=== PATIENT | male | born 1965 | race Caucasian/White ===

== ENCOUNTER 2017-03-19 13:54 | Inpatient (IN) ==
[2017-03-19] MEDS ORDERED: SODIUM CHLORIDE 0.9% 1,000 ML IV SCH (14:30)
[2017-03-19] MEDS ORDERED: MORPHINE 2 MG/1 ML SYRINGE ONE (17:44)
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
[2017-03-19] MEDS: MORPHINE 2 MG/1 ML SYRINGE IV PRN ×2 (17:55→22:14)
[2017-03-19] MEDS ORDERED: SODIUM CHLORIDE 0.9% 250 ML IV PRN (18:10)
[2017-03-19] MEDS: FOLIC ACID 1 MG IV SCH (18:39)
[2017-03-19] MEDS: [UNRECOGNIZED DRUG - OTHER] IV SCH (18:39)
[2017-03-19] MEDS: PANTOPRAZOLE INJ 200 MG in SODIUM CHLORIDE 0.9% 250 ML IV SCH (18:39)
[2017-03-19] MEDS: MULTIVITA IV SCH (18:39)
[2017-03-19] MEDS: THIAMINE IV SCH (18:39)
[2017-03-19 18:44] LABS: Immature Granulocytes % 0.6 %; Immature Granulocytes Absolute 0.05 #; Lymphocytes # 1.1 10*3/uL (1.4-4.0); Lymphocytes % 11.8 % (21.2-54.2); Mean Corpuscular HGB Conc 28.6 GM/DL (32-36); Mean Corpuscular Hemoglobin 20 PG (27-34); Mean Corpuscular Volume 70.3 FL (87-102); Monocytes # 0.6 10*3/uL (0.11-0.8); Monocytes % 6.1 % (1.7-12.7); Neutrophils # 7.4 10*3/uL (1.4-7.4); Neutrophils % 81.5 % (38.7-73.9); Platelet Count 67 T/CUMM (130-400); Red Blood Count 2.39 MC/CUMM (3.8-5.5); Red Cell Distribution Width 22.5 % (9.3-17.3); White Blood Count 9.1 T/CUMM (4-12)
[2017-03-19 18:52] LABS: Albumin 2.4 G/DL (3.4-5.0); Bilirubin,Total 0.9 MG/DL (0.2-1.0); Calcium 7.5 MG/DL (8.5-10.1); Magnesium 1.8 MG/DL (1.8-2.4); Osmolality,Calculated 281.3 MOS/KG (273-304); Potassium 4.1 MMOL/L (3.5-5.1); Total Protein 6.2 G/DL (6.4-8.3)
[2017-03-19 18:53] LABS: Hematocrit 16.8 VOL% (42.0-52.0); Hemoglobin 4.8 GM/DL (14.0-18.0)
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
[2017-03-19 19:01] LABS: Platelet Estimate Decreased
--- NOTE | 2017-03-19 19:05 | XRay Report ---
Portable chest Date: 03/19/2017 Clinical history: Hypertension, nicotine abuse, hematemesis, alcohol abuse, anemia Comparison: None Technique: Portable AP sitting chest Findings: The heart is normal in size. Calcified granulomata/nodes. Unremarkable mediastinum with degenerative changes. Impression: Old healed granulomatous disease. No acute cardiopulmonary pathology identified. PROCEDURE INTERPRETED AT [facility] DEPARTMENT OF RADIOLOGY Final Report Signed by: Dr. Ellen Silva
[2017-03-19 19:19] LABS: % Iron Saturation 6.3 % (18-50); Ferritin 11.3 ng/ml (26-388)
[2017-03-19 19:49] LABS: INR 1.3; PT Patient Result 14.5 SECS
[2017-03-19] MEDS: ONDANSETRON 4 MG/2 ML VIAL IV PRN (20:12)
[2017-03-19] MEDS: LORazepam 2 MG/1 ML VIAL IV PRN (20:46)
[2017-03-20] MEDS: LORazepam 2 MG/1 ML VIAL IV PRN ×5 (01:53→22:53)
[2017-03-20] MEDS: MORPHINE 2 MG/1 ML SYRINGE IV PRN ×5 (02:12→22:53)
[2017-03-20] MEDS: [UNRECOGNIZED DRUG - OTHER] IV SCH ×2 (04:50→16:40)
[2017-03-20] MEDS: FOLIC ACID 1 MG IV SCH ×2 (04:50→16:40)
[2017-03-20] MEDS: MULTIVITA IV SCH ×2 (04:50→16:40)
[2017-03-20] MEDS: THIAMINE IV SCH ×2 (04:50→16:40)
[2017-03-20 05:47] LABS: Immature Granulocytes % 0.5 %; Immature Granulocytes Absolute 0.06 #; Lymphocytes # 1.8 10*3/uL (1.4-4.0); Lymphocytes % 15.5 % (21.2-54.2); Mean Corpuscular HGB Conc 28.6 GM/DL (32-36); Mean Corpuscular Hemoglobin 20 PG (27-34); Mean Corpuscular Volume 70.3 FL (87-102); Monocytes # 0.7 10*3/uL (0.11-0.8); Monocytes % 6.2 % (1.7-12.7); NRBC # 0.02 10*3/uL; Neutrophils # 8.8 10*3/uL (1.4-7.4); Neutrophils % 77.8 % (38.7-73.9); Platelet Count 74 T/CUMM (130-400); Red Blood Count 2.29 MC/CUMM (3.8-5.5); Red Cell Distribution Width 22.5 % (9.3-17.3); White Blood Count 11.3 T/CUMM (4-12)
[2017-03-20 05:57] LABS: Hematocrit 16.1 VOL% (42.0-52.0); Hemoglobin 4.6 GM/DL (14.0-18.0); INR 1.3; PT Patient Result 13.8 SECS; Partial Thromboplastin Time 27.3 SECS (0-40)
[2017-03-20 06:07] LABS: Elliptocytes Few; Eosinophils 1 % (0-10); Hypochromasia 1+; Lymphocytes 13 % (20-55); Platelet Estimate Decreased; Segmented Neutrophils 83 % (50-85); Total Cells Counted 100
--- NOTE | 2017-03-20 08:01 | EKG Report ---
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
--- NOTE | 2017-03-20 10:35 | Hospitalist Progress Note ---
Assessment and Plan - Time spent with patient Time spent with patient: Greater than 30 minutes (1) Acute blood loss anemia Status: Acute Assessment and plan: Attempting to find blood match. Current Visit: Yes (2) Hematemesis Status: Acute Assessment and plan: Gi on board, hopefully scope today. Current Visit: Yes (3) Alcohol abuse Status: Acute Assessment and plan: Patient counselled. Current Visit: Yes Hospitalist: Subjective Interval history: No complaints, no overnight events. Exam - Constitutional Vitals: Period Temp Pulse Resp BP Sys/Avila Pulse Ox Last 24 Hr 97.7 F-100.1 F 93-109 18-20 98-160/57-97 96-99 General appearance: no acute distress - Head Head exam: Present: normocephalic, atraumatic - Eye Eye exam: Present: EOMI Pupils: Present: IDA - ENT ENT exam: Present: normal exam - Neck Neck exam: Present: normal inspection - Respiratory Respiratory exam: Present: clear to auscultation bilaterally. Absent: rhonchi, wheezes - Cardiovascular Cardiovascular exam: Present: regular rate and rhythm. Absent: gallop, rubs, systolic murmur - GI/Abdominal GI/Abdominal exam: Present: normal bowel sounds, soft. Absent: distended, firm , guarding, tenderness, rebound - Extremities Exam Extremities exam: Present: normal inspection. Absent: calf tenderness, edema Results - Labs CBC & BMP: 03/20/17 04:55 03/19/17 17:21 Lab Results: I have reviewed the past 24 hour labs Quality Measures - VTE Contraindication No Overlap Therapy: Active Bleeding
[2017-03-20] MEDS ORDERED: LIDOCAINE 2% 5 ML VIAL ONE (12:03)
[2017-03-20] MEDS ORDERED: PROPOFOL 200 MG/20 ML VIAL IV ONE (12:03)
--- NOTE | 2017-03-20 12:06 | History and Physical Update ---
History and Physical Update - Physical Exam Mental Status: alert and oriented Heart: regular rate and rhythm Lung: clear to auscultation Abdomen: within normal limits Vitals: within normal limits
--- NOTE | 2017-03-20 12:16 | Operative Note ---
Date of procedure: 03/20/17 Pre-op diagnosis: Hematemesis Procedure: -year-old alcoholic male with hematemesis has had multiple endoscopies he reports done at [facility] in [place] with no definitive source identified now for repeat EGD. So far his hospital course have been complicated by the fact that he has been unable to be transfused due to inability to find compatible blood due to antibodies. Informed consent was obtained the patient He was sedated with MAC anesthesia per anesthesia protocol. Patient placed left lateral decubitus position the Olympus flexible video upper endoscope was inserted lower cavity under direct vision the esophagus intubated findings: Esophagus-1+ esophageal varices are seen in the distal esophagus there is no stigmata of recent bleed with no mucus below pleural or ott red spots. Stomach-normal insufflation. Changes of portal hypertensive gastropathy were visualized. No blood was present. No ulcer seen to direct retroflexed views of the body fundus cardia the stomach. Pylorus-normal Duodenum-normal the bulb duodenum to the third portion of duodenum. The procedure terminated placed our procedure well his discharge recovery in good condition Postop diagnosis: 1. Esophageal varices-no evidence to suggest recent bleeding. Hematocrit is too low to risk creating any bleeding with no evidence of ongoing bleeding. Possibilities varices get better if his blood count was normalized would certainly have to be entertained. Whether or not he has had prior banding done informed general we are unaware. 2. Portal hypertensive gastropathy 3. Transfuse blood when available and monitor for signs symptoms of ongoing bleeding. Prognosis is poor both from his multiple antibodies complicating ability to give him blood and his unwillingness to cease alcohol consumption and his underlying alcoholic liver disease. Anesthesia: [facility] Surgeon / Physician: Kenji Dee Estimated blood loss: none Specimens: none sent Condition: stable Disposition: post procedure unit Results - Labs CBC & BMP: 03/20/17 04:55 03/19/17 17:21 Discharge Plan - Discharge Medications No Action chlordiazePOXIDE [Librium] 25 mg PO DAILY Pantoprazole Sodium 40 mg PO DAILY cloNIDine HCl [Clonidine HCl] 0.1 mg PO DAILY PRN PRN Reason: Anxiety - Follow Up or Referral - Forms/Instructions
--- NOTE | 2017-03-20 13:00 | Anesthesia Post-Op ---
Anesthesia Post OP - Post Ansesthetic Evaluation Patient seen in post op: Yes Resp: within normal limits CV: within normal limits Mental: within normal limits Temp: within normal limits [id number]: within normal limits Nausea and Vomiting: within normal limits Pain: within normal limits
[2017-03-20] MEDS: PANTOPRAZOLE INJ 200 MG in SODIUM CHLORIDE 0.9% 250 ML IV SCH (20:01)
[2017-03-20] MEDS: ONDANSETRON 4 MG/2 ML VIAL IV PRN (21:15)
[2017-03-21] MEDS: LORazepam 2 MG/1 ML VIAL IV PRN ×3 (02:58→11:55)
[2017-03-21] MEDS: MORPHINE 2 MG/1 ML SYRINGE IV PRN ×3 (02:58→11:59)
[2017-03-21 04:23] LABS: Hematocrit 14.2 VOL% (42.0-52.0); Hemoglobin 4.1 GM/DL (14.0-18.0)
[2017-03-21 04:26] LABS: INR 1.3; PT Patient Result 13.8 SECS
[2017-03-21] MEDS: MULTIVITA IV SCH ×4 (07:20→23:53)
[2017-03-21] MEDS: [UNRECOGNIZED DRUG - OTHER] IV SCH ×4 (07:20→23:53)
[2017-03-21] MEDS: FOLIC ACID 1 MG IV SCH ×4 (07:20→23:53)
[2017-03-21] MEDS: THIAMINE IV SCH ×4 (07:20→23:53)
[2017-03-21 09:15] LABS: Basophils % 0.1 % (0.0-0.8); Immature Granulocytes % 0.7 %; Immature Granulocytes Absolute 0.07 #; Lymphocytes # 2.4 10*3/uL (1.4-4.0); Lymphocytes % 23.5 % (21.2-54.2); Mean Corpuscular HGB Conc 27.6 GM/DL (32-36); Mean Corpuscular Hemoglobin 20 PG (27-34); Mean Corpuscular Volume 72.8 FL (87-102); Monocytes # 0.7 10*3/uL (0.11-0.8); Monocytes % 6.6 % (1.7-12.7); Neutrophils % 69.1 % (38.7-73.9); Platelet Count 86 T/CUMM (130-400); Red Blood Count 2.24 MC/CUMM (3.8-5.5); Red Cell Distribution Width 23.2 % (9.3-17.3); White Blood Count 10.2 T/CUMM (4-12)
[2017-03-21 09:20] LABS: Hematocrit 16.3 VOL% (42.0-52.0); Hemoglobin 4.5 GM/DL (14.0-18.0)
[2017-03-21 09:42] LABS: Calcium 7.5 MG/DL (8.5-10.1); Osmolality,Calculated 280.3 MOS/KG (273-304); Potassium 3.5 MMOL/L (3.5-5.1)
[2017-03-21 09:49] LABS: Hypochromasia 1+; Microcytosis 1+; Polychromasia Slight; Target Cells Few
[2017-03-21 09:50] LABS: Ovalocytes Slight; Platelet Estimate Decreased
--- NOTE | 2017-03-21 10:49 | Gastrointestinal Progress Note ---
<Jen Stokes D - Last Filed: 03/21/17 10:47> Assessment and Plan (1) Hematemesis Status: Acute Assessment and plan: 03/21-Hgb 4.5, awaiting blood transfusion d/t difficulty with type/ crossmatching. Reports small amount of dark and bright red blood in stool today. Denies pain. Continue to monitor at present time. Plan and addendum to follow by Dr Dee. Current Visit: Yes Gastroenterology - PN: Subj Interval history: CC: Hematemesis Patient is seen awake and alert sitting up at the edge of bed. States that he is getting up and down to the bathroom by himself at this time. Patient does complain of some weakness with ambulation. His hemoglobin remains at 4.5 and has not had the blood transfusion as of yet due to difficulties with typing and cross matching. EGD on yesterday showed esophageal varices with no recent bleeding seen as well as portal hypertensive gastropathy. No current alcohol withdrawal seizures or DTs noted at present time. Abdomen soft, nontender. Tolerating clear liquids at present. Patient heavily advised not to get up and down without the assistance of nursing staff due to his low blood counts and risk of orthostatic hypotension related falls. He is noted to be running a low- grade fever this morning at 100.3. He does report a small amount of dark and bright red blood mixed in stool this morning. No reports of pain. ROS: Denies shortness of breath or chest pain Exam (Progress Note) - Constitutional Vitals: Period Temp Pulse Resp BP Sys/Avila Pulse Ox Last 24 Hr 99.4 F-100.9 F 100-126 14-23 93-136/56-78 94-98 General appearance: normal weight, no acute distress - Head Head exam: Present: normal inspection, normocephalic - Eye Eye exam: Present: other (Lids objective unremarkable). Absent: scleral icterus - ENT ENT exam: Present: normal exam, normal oropharynx - Neck Neck exam: Present: normal inspection - Respiratory Respiratory exam: Present: clear to auscultation bilaterally. Absent: rales, rhonchi, wheezes - Cardiovascular Cardiovascular exam: Present: regular rate and rhythm. Absent: diastolic murmur , JVD, systolic murmur - GI/Abdominal GI/Abdominal exam: Present: normal bowel sounds, soft. Absent: ascites, distended, mass, organomegaly, tenderness - Extremities Exam Extremities exam: Present: normal inspection, full ROM - Back Exam Back exam: Present: normal inspection - Neurological Exam Neurological exam: Present: alert, oriented X3 - Psychiatric Psychiatric exam: Present: normal affect, normal mood - Skin Skin exam: Present: normal color, warm, dry Results - Labs CBC & BMP: 03/21/17 09:05 03/21/17 09:05 Lab Results: I have reviewed the past 24 hour labs <Kenji Dee - Last Filed: 03/21/17 18:28> Assessment and Plan (1) Hematemesis Status: Acute Current Visit: Yes (2) Alcohol abuse Status: Acute Current Visit: Yes Exam (Progress Note) - Constitutional Vitals: Period Temp Pulse Resp BP Sys/Avila Pulse Ox Last 24 Hr 99.0 F-100.9 F 97-120 18-22 107-140/68-90 93-98 Results - Labs CBC & BMP: 03/21/17 09:05 03/21/17 09:05
--- NOTE | 2017-03-21 11:26 | XRay Report ---
Exam: XR chest 1V portable Date: 03/21/2017 8:18 AM Indication: Fever Comparison: 03/19/2017 Technical: AP portable Findings: Mild cardiac enlargement. No obvious infiltrate or effusion. A few reticular nodular densities are present. The mediastinum is otherwise intact. Impression: 1. Cardiomegaly without decompensation. PROCEDURE INTERPRETED AT [facility] DEPARTMENT OF RADIOLOGY Final Report Signed by: Dr. Gilberto Maya
[2017-03-21] MEDS ORDERED: LORazepam 2 MG/1 ML VIAL IV SCH (14:00)
--- NOTE | 2017-03-21 14:00 | Hospitalist Progress Note ---
Assessment and Plan - Time spent with patient Time spent with patient: Greater than 30 minutes (1) Fever Status: Acute Assessment and plan: May reflect DTs. Will increase Ativan. Chest x-ray is unremarkable will obtain blood culture and urinalysis. Current Visit: Yes (2) Acute blood loss anemia Status: Acute Assessment and plan: Attempting to find blood match. Current Visit: Yes (3) Hematemesis Status: Acute Assessment and plan: Scope performed and reveals esophageal varices with changes of portal hypertension gastropathy. Current Visit: Yes (4) Alcohol abuse Status: Acute Assessment and plan: I am concerned the fever may represent DTs. We will schedule Ativan and have as needed. Current Visit: Yes Hospitalist: Subjective Interval history: Patient has been having low-grade fevers. Denies any cough or dysuria. Still awaiting blood match for transfusion. Exam - Constitutional Vitals: Period Temp Pulse Resp BP Sys/Avila Pulse Ox Last 24 Hr 99.0 F-100.9 F 97-126 18-22 107-139/64-82 93-98 General appearance: no acute distress - Head Head exam: Present: normocephalic, atraumatic - Eye Eye exam: Present: EOMI Pupils: Present: IDA - ENT ENT exam: Present: normal exam - Neck Neck exam: Present: normal inspection - Respiratory Respiratory exam: Present: clear to auscultation bilaterally, other (Some rales appreciated at the bases.). Absent: rhonchi, wheezes - Cardiovascular Cardiovascular exam: Present: regular rate and rhythm. Absent: gallop, rubs, systolic murmur - GI/Abdominal GI/Abdominal exam: Present: normal bowel sounds, soft. Absent: distended, firm , guarding, tenderness, rebound - Extremities Exam Extremities exam: Present: normal inspection. Absent: calf tenderness, edema Results - Labs CBC & BMP: 03/21/17 09:05 03/21/17 09:05 Lab Results: I have reviewed the past 24 hour labs Quality Measures - VTE Contraindication No Overlap Therapy: Active Bleeding
[2017-03-21] MEDS: LORazepam 2 MG/1 ML VIAL IV SCH ×2 (14:27→21:32)
[2017-03-21] MEDS ORDERED: HALOPERIDOL 5 MG/ML AMP IM ONE (15:23)
[2017-03-21] MEDS: PANTOPRAZOLE INJ 200 MG in SODIUM CHLORIDE 0.9% 250 ML IV SCH ×2 (17:30→23:54)
[2017-03-22 02:18] LABS: Basophils % 0.1 % (0.0-0.8); Hematocrit 20.1 VOL% (42.0-52.0); Immature Granulocytes % 0.5 %; Immature Granulocytes Absolute 0.04 #; Lymphocytes # 1.4 10*3/uL (1.4-4.0); Lymphocytes % 18.2 % (21.2-54.2); Mean Corpuscular HGB Conc 29.9 GM/DL (32-36); Mean Corpuscular Hemoglobin 22 PG (27-34); Mean Corpuscular Volume 73.9 FL (87-102); Monocytes # 0.6 10*3/uL (0.11-0.8); Monocytes % 7.5 % (1.7-12.7); NRBC # 0.02 10*3/uL; Neutrophils # 5.8 10*3/uL (1.4-7.4); Neutrophils % 73.7 % (38.7-73.9); Platelet Count 72 T/CUMM (130-400); Red Blood Count 2.72 MC/CUMM (3.8-5.5); Red Cell Distribution Width 22.3 % (9.3-17.3); White Blood Count 7.8 T/CUMM (4-12)
[2017-03-22 02:25] LABS: Apearance,Urine CLEAR (Clear); Bilirubin,Urine Negative (Negative); Blood, Urine Negative (Negative); Glucose,Urine (UA) Negative (Negative); Hyaline Casts,Urine 1 /LPF (0-3); Ketones,Urine Negative (Negative); Mucus,Urine Occasional /LPF (Occasional); Nitrite,Urine Negative (Negative); Protein,Urine Negative; Urine Color Yellow (Yellow); WBC,Urine 1 /HPF (0-6)
[2017-03-22 02:42] LABS: Calcium 7.4 MG/DL (8.5-10.1); Osmolality,Calculated 273.5 MOS/KG (273-304)
[2017-03-22 02:48] LABS: INR 1.3; PT Patient Result 13.9 SECS
[2017-03-22 03:55] LABS: Hypochromasia 2+; Platelet Estimate Decreased; Polychromasia 1+; Spherocytes 1+
[2017-03-22] MEDS: LORazepam 2 MG/1 ML VIAL IV SCH ×2 (06:07→13:45)
[2017-03-22] MEDS: FOLIC ACID 1 MG IV SCH ×2 (06:08→20:54)
[2017-03-22] MEDS: THIAMINE IV SCH ×2 (06:08→20:54)
[2017-03-22] MEDS: [UNRECOGNIZED DRUG - OTHER] IV SCH ×2 (06:08→20:54)
[2017-03-22] MEDS: MULTIVITA IV SCH ×2 (06:08→20:54)
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
[2017-03-22] MEDS ORDERED: HALOPERIDOL 5 MG/ML AMP IM SCH (10:30)
[2017-03-22] MEDS: HALOPERIDOL 5 MG/ML AMP IM PRN (11:35)
[2017-03-22] MEDS ORDERED: SODIUM CHLORIDE 0.9% 250 ML IV PRN (12:53)
--- NOTE | 2017-03-22 12:55 | Hospitalist Progress Note ---
Assessment and Plan - Time spent with patient Time spent with patient: Greater than 30 minutes (1) Encephalopathy acute Status: Acute Assessment and plan: Unsure if this is infectious vs due to withdrawal from alcohol. Will initiate broad spectrum antibiotics. Current Visit: Yes (2) Fever Status: Acute Assessment and plan: We will initiate broad-spectrum antibiotics. Once patient is more stable we will attempt to perform a spinal tap. Current Visit: Yes (3) Acute blood loss anemia Status: Acute Assessment and plan: Transfuse 2 units, will attempt to transfuse 2 more units. Current Visit: Yes (4) Hematemesis Status: Acute Assessment and plan: Scope performed and reveals esophageal varices with changes of portal hypertension gastropathy. Current Visit: Yes (5) Alcohol abuse Status: Acute Assessment and plan: I am concerned the fever may represent DTs if not an infection. We will schedule Ativan and have as needed. Current Visit: Yes Hospitalist: Subjective Interval history: Patient has been agitated is currently in 4. restraints. He is confused. He continues to have fevers. He endorses a sinus headache and occasional neck pain. He was able to receive 2 units of transfused blood yesterday. Exam - Constitutional Vitals: Period Temp Pulse Resp BP Sys/Avila Pulse Ox Last 24 Hr 98.9 F-100.2 F 96-114 18-22 124-140/68-90 94-97 General appearance: no acute distress - Head Head exam: Present: normocephalic, atraumatic - Eye Eye exam: Present: EOMI Pupils: Present: DIA - ENT ENT exam: Present: normal exam - Neck Neck exam: Present: normal inspection - Respiratory Respiratory exam: Present: clear to auscultation bilaterally. Absent: rhonchi, wheezes - Cardiovascular Cardiovascular exam: Present: regular rate and rhythm. Absent: gallop, rubs, systolic murmur - GI/Abdominal GI/Abdominal exam: Present: normal bowel sounds, soft. Absent: distended, firm , guarding, tenderness, rebound - Extremities Exam Extremities exam: Present: normal inspection. Absent: calf tenderness, edema Results - Labs CBC & BMP: 03/22/17 01:47 03/22/17 01:47 Lab Results: I have reviewed the past 24 hour labs Quality Measures - VTE Contraindication No Overlap Therapy: Active Bleeding
[2017-03-22] MEDS ORDERED: VANCOMYCIN INJ 1,250 MG in SODIUM CHLORIDE 0.9% 250 ML IV SCH (14:00)
[2017-03-22] MEDS: cefTRIAXone 2,000 MG in SODIUM CHLORIDE 0.9% 100 ML IV SCH (14:36)
[2017-03-22] MEDS: VANCOMYCIN INJ 1,250 MG in SODIUM CHLORIDE 0.9% 250 ML IV SCH (18:02)
[2017-03-23] MEDS: LORazepam 2 MG/1 ML VIAL IV SCH ×4 (00:50→22:13)
[2017-03-23] MEDS: [UNRECOGNIZED DRUG - OTHER] IV SCH ×3 (00:54→22:21)
[2017-03-23] MEDS: MULTIVITA IV SCH ×3 (00:54→22:21)
[2017-03-23] MEDS: THIAMINE IV SCH ×3 (00:54→22:21)
[2017-03-23] MEDS: FOLIC ACID 1 MG IV SCH ×3 (00:54→22:21)
[2017-03-23] MEDS: cefTRIAXone 2,000 MG in SODIUM CHLORIDE 0.9% 100 ML IV SCH ×2 (02:06→15:29)
[2017-03-23] MEDS: MORPHINE 2 MG/1 ML SYRINGE IV PRN (02:14)
[2017-03-23] MEDS: HALOPERIDOL 5 MG/ML AMP IM PRN (03:33)
[2017-03-23] MEDS: VANCOMYCIN INJ 1,250 MG in SODIUM CHLORIDE 0.9% 250 ML IV SCH ×2 (05:30→18:03)
[2017-03-23] MEDS: PANTOPRAZOLE 40 MG VIAL IV SCH ×2 (08:27→22:07)
[2017-03-23 08:53] LABS: Basophils % 0.1 % (0.0-0.8); Hematocrit 19.9 VOL% (42.0-52.0); Immature Granulocytes % 0.4 %; Immature Granulocytes Absolute 0.03 #; Lymphocytes # 1.4 10*3/uL (1.4-4.0); Mean Corpuscular HGB Conc 28.6 GM/DL (32-36); Mean Corpuscular Hemoglobin 22 PG (27-34); Mean Corpuscular Volume 76.2 FL (87-102); Monocytes # 0.7 10*3/uL (0.11-0.8); Monocytes % 9.7 % (1.7-12.7); NRBC # 0.04 10*3/uL; Neutrophils # 5.1 10*3/uL (1.4-7.4); Neutrophils % 70.8 % (38.7-73.9); Platelet Count 79 T/CUMM (130-400); Red Blood Count 2.61 MC/CUMM (3.8-5.5); Red Cell Distribution Width 22.5 % (9.3-17.3); White Blood Count 7.2 T/CUMM (4-12)
[2017-03-23 09:03] LABS: Hemoglobin 5.7 GM/DL (14.0-18.0)
[2017-03-23 09:12] LABS: Hypochromasia 1+
[2017-03-23 09:13] LABS: Anisocytosis 1+; Microcytosis 1+; Platelet Estimate Decreased; Target Cells Slight
[2017-03-23 09:22] LABS: Calcium 7.2 MG/DL (8.5-10.1); Osmolality,Calculated 282.8 MOS/KG (273-304)
--- NOTE | 2017-03-23 11:31 | Hospitalist Progress Note ---
Assessment and Plan - Time spent with patient Time spent with patient: Greater than 30 minutes (1) Encephalopathy acute Status: Acute Assessment and plan: Still the patient is confused and agitated. He still requires restraints for his own protection. I believe this is most likely due to DTs. Current Visit: Yes (2) Fever Status: Acute Assessment and plan: Improved, prior to even starting antibiotics. No spinal tap warranted and will consider stopping antibiotics. Current Visit: Yes (3) Acute blood loss anemia Status: Acute Assessment and plan: Transfuse an additional 2 units. Current Visit: Yes (4) Hematemesis Status: Acute Assessment and plan: Scope performed and reveals esophageal varices with changes of portal hypertension gastropathy. Current Visit: Yes (5) Alcohol abuse Status: Acute Assessment and plan: I am concerned the fever may represent DTs if not an infection. We will place Ativan and have as needed. Current Visit: Yes Hospitalist: Subjective Interval history: Patient's been agitated overnight and currently in restraints due to pulling at lines and attempting to get out of bed. However currently he is resting. No fevers. Exam - Constitutional Vitals: Period Temp Pulse Resp BP Sys/Avila Pulse Ox Last 24 Hr 97.7 F-99.3 F 76-120 18-21 129-217/57-113 94-100 General appearance: no acute distress - Head Head exam: Present: normocephalic, atraumatic - Eye Eye exam: Present: EOMI Pupils: Present: IDA - ENT ENT exam: Present: normal exam - Neck Neck exam: Present: normal inspection - Respiratory Respiratory exam: Present: clear to auscultation bilaterally. Absent: rhonchi, wheezes - Cardiovascular Cardiovascular exam: Present: regular rate and rhythm. Absent: gallop, rubs, systolic murmur - GI/Abdominal GI/Abdominal exam: Present: normal bowel sounds, soft. Absent: distended, firm , guarding, tenderness, rebound - Extremities Exam Extremities exam: Present: normal inspection. Absent: calf tenderness, edema Results - Labs CBC & BMP: 03/23/17 08:43 03/23/17 08:43 Lab Results: I have reviewed the past 24 hour labs Quality Measures - VTE Contraindication No Overlap Therapy: Active Bleeding
[2017-03-23] MEDS: POTASSIUM CHLORIDE RIDER 10 MEQ in PREMIX 1 EACH IV SCH ×6 (12:55→19:16)
[2017-03-24] MEDS: cefTRIAXone 2,000 MG in SODIUM CHLORIDE 0.9% 100 ML IV SCH ×2 (02:17→14:14)
[2017-03-24] MEDS: VANCOMYCIN INJ 1,250 MG in SODIUM CHLORIDE 0.9% 250 ML IV SCH ×2 (06:07→19:08)
[2017-03-24] MEDS: LORazepam 2 MG/1 ML VIAL IV SCH ×3 (06:16→22:08)
[2017-03-24 06:31] LABS: Basophils % 0.3 % (0.0-0.8); Hematocrit 26.1 VOL% (42.0-52.0); Hemoglobin 8.2 GM/DL (14.0-18.0); Immature Granulocytes % 0.4 %; Immature Granulocytes Absolute 0.03 #; Lymphocytes # 1.4 10*3/uL (1.4-4.0); Lymphocytes % 20.5 % (21.2-54.2); Mean Corpuscular HGB Conc 31.4 GM/DL (32-36); Mean Corpuscular Hemoglobin 24 PG (27-34); Mean Platelet Volume 10.8 FL (9.6-12.0); Monocytes # 0.6 10*3/uL (0.11-0.8); Monocytes % 9.1 % (1.7-12.7); NRBC # 0.04 10*3/uL; Neutrophils # 4.7 10*3/uL (1.4-7.4); Neutrophils % 69.7 % (38.7-73.9); Red Blood Count 3.39 MC/CUMM (3.8-5.5); Red Cell Distribution Width 20.7 % (9.3-17.3); White Blood Count 6.7 T/CUMM (4-12)
[2017-03-24 06:33] LABS: Platelet Count 78 T/CUMM (130-400)
[2017-03-24 07:05] LABS: Calcium 6.9 MG/DL (8.5-10.1)
[2017-03-24] MEDS: MORPHINE 2 MG/1 ML SYRINGE IV PRN ×2 (07:06→20:55)
[2017-03-24 07:31] LABS: Band Neutrophils 1 % (0-10); Eosinophils 2 % (0-10); Lymphocytes 16 % (20-55); Segmented Neutrophils 77 % (50-85); Total Cells Counted 100
[2017-03-24 07:32] LABS: Hypochromasia 1+; Microcytosis 1+; Platelet Estimate Decreased; Polychromasia Slight
[2017-03-24] MEDS: PANTOPRAZOLE 40 MG VIAL IV SCH ×2 (09:11→21:02)
[2017-03-24] MEDS: FOLIC ACID 1 MG IV SCH ×2 (09:40→14:16)
[2017-03-24] MEDS: MULTIVITA IV SCH ×2 (09:40→14:16)
[2017-03-24] MEDS: [UNRECOGNIZED DRUG - OTHER] IV SCH ×2 (09:40→14:16)
[2017-03-24] MEDS: THIAMINE IV SCH ×2 (09:40→14:16)
--- NOTE | 2017-03-24 13:32 | Hospitalist Progress Note ---
Assessment and Plan - Time spent with patient Time spent with patient: Greater than 30 minutes (1) Encephalopathy acute Status: Acute Assessment and plan: We will order a lumbar puncture for tomorrow. Current Visit: Yes (2) Fever Status: Acute Assessment and plan: Continue antibiotics and lumbar tap tomorrow. Current Visit: Yes (3) Acute blood loss anemia Status: Acute Assessment and plan: Stable and improved. Current Visit: Yes (4) Hematemesis Status: Acute Assessment and plan: Scope performed and reveals esophageal varices with changes of portal hypertension gastropathy. Current Visit: Yes (5) Alcohol abuse Status: Acute Assessment and plan: I am concerned the fever may represent DTs if not an infection. We will place Ativan and have as needed. Current Visit: Yes Hospitalist: Subjective Interval history: Patient is much more calm much less agitated and much less confused this morning. He appears to be returning to normal baseline mentation. He continues to have fevers. Exam - Constitutional Vitals: Period Temp Pulse Resp BP Sys/Avila Pulse Ox Last 24 Hr 98.7 F-100.9 F 76-94 16-24 109-136/56-78 93-98 General appearance: no acute distress - Head Head exam: Present: normocephalic, atraumatic - Eye Eye exam: Present: EOMI Pupils: Present: IDA - ENT ENT exam: Present: normal exam - Neck Neck exam: Present: normal inspection - Respiratory Respiratory exam: Present: clear to auscultation bilaterally. Absent: rhonchi, wheezes - Cardiovascular Cardiovascular exam: Present: regular rate and rhythm. Absent: gallop, rubs, systolic murmur - GI/Abdominal GI/Abdominal exam: Present: normal bowel sounds, soft. Absent: distended, firm , guarding, tenderness, rebound - Extremities Exam Extremities exam: Present: normal inspection. Absent: calf tenderness, edema Results - Labs CBC & BMP: 03/24/17 06:23 03/24/17 06:23 Lab Results: I have reviewed the past 24 hour labs Quality Measures - VTE Contraindication No Overlap Therapy: Active Bleeding
[2017-03-25] MEDS: FOLIC ACID 1 MG IV SCH ×4 (00:30→19:55)
[2017-03-25] MEDS: THIAMINE IV SCH ×4 (00:30→19:55)
[2017-03-25] MEDS: [UNRECOGNIZED DRUG - OTHER] IV SCH ×4 (00:30→19:55)
[2017-03-25] MEDS: MULTIVITA IV SCH ×4 (00:30→19:55)
[2017-03-25] MEDS: cefTRIAXone 2,000 MG in SODIUM CHLORIDE 0.9% 100 ML IV SCH ×2 (01:05→14:09)
[2017-03-25] MEDS: MORPHINE 2 MG/1 ML SYRINGE IV PRN ×4 (01:07→20:00)
[2017-03-25] MEDS: LORazepam 2 MG/1 ML VIAL IV SCH ×3 (06:02→21:16)
[2017-03-25] MEDS: VANCOMYCIN INJ 1,250 MG in SODIUM CHLORIDE 0.9% 250 ML IV SCH ×2 (06:02→16:30)
[2017-03-25] MEDS: PANTOPRAZOLE 40 MG VIAL IV SCH ×2 (09:48→20:00)
--- NOTE | 2017-03-25 11:20 | Gastrointestinal Progress Note ---
<FabianocemJen Tg - Last Filed: 03/25/17 11:18> Assessment and Plan (1) Hematemesis Status: Acute Assessment and plan: 03/25-hemoglobin 8.2, following total of 5 units of packed red blood cells transfused. No overt bleeding. Low-grade fever with confusion over the weekend. Lumbar puncture pending for today. Plan an addendum to follow by Dr. Dee per 03/22-Hgb 6.0, no overt bleeding. NO reports of N/V. Continue to monitor serial HH. Plan and addendum to follow by Dr Dee. 03/21-Hgb 4.5, awaiting blood transfusion d/t difficulty with type/ crossmatching. Reports small amount of dark and bright red blood in stool today. Denies pain. Continue to monitor at present time. Plan and addendum to follow by Dr Dee. Current Visit: Yes Gastroenterology - PN: Subj Interval history: CC: Hematemesis Patient is seen lying in bed asleep. Easily arousable and less confused than prior to the weekend. Abdomen is soft, nontender. No signs of overt bleeding has been reported. Hemoglobin is holding at 8.2 following 5 units of packed red blood cells. He is noted to have ran a low-grade fever and to have a lumbar puncture today due to the fever and his level of confusion over the weekend. ROS: Denies shortness of breath or chest pain. Exam (Progress Note) - Constitutional Vitals: Period Temp Pulse Resp BP Sys/Avila Pulse Ox Last 24 Hr 98.1 F-99.5 F 79-89 16-21 109-133/56-85 92-96 General appearance: normal weight, no acute distress - Head Head exam: Present: normal inspection, normocephalic - Eye Eye exam: Present: other (Lids and conjunctive are unremarkable). Absent: scleral icterus - ENT ENT exam: Present: normal exam, normal oropharynx - Neck Neck exam: Present: normal inspection - Respiratory Respiratory exam: Present: clear to auscultation bilaterally. Absent: rales, rhonchi, wheezes - Cardiovascular Cardiovascular exam: Present: regular rate and rhythm. Absent: diastolic murmur , JVD, systolic murmur - GI/Abdominal GI/Abdominal exam: Present: normal bowel sounds, soft. Absent: ascites, distended, mass, organomegaly, tenderness - Extremities Exam Extremities exam: Present: normal inspection, full ROM - Back Exam Back exam: Present: normal inspection - Neurological Exam Neurological exam: Present: alert, oriented X3 - Psychiatric Psychiatric exam: Present: normal affect, normal mood - Skin Skin exam: Present: normal color, warm, dry Results - Labs CBC & BMP: 03/24/17 06:23 03/24/17 06:23 Lab Results: I have reviewed the past 24 hour labs <Kenji Dee - Last Filed: 03/25/17 20:32> Assessment and Plan (1) Hematemesis Status: Acute Current Visit: Yes (2) Alcohol abuse Status: Acute Current Visit: Yes Exam (Progress Note) - Constitutional Vitals: Period Temp Pulse Resp BP Sys/Avila Pulse Ox Last 24 Hr 98.1 F-99.5 F 80-89 18-20 109-133/72-86 92-96 Results - Labs CBC & BMP: 03/24/17 06:23 03/24/17 06:23
--- NOTE | 2017-03-25 12:14 | Hospitalist Progress Note ---
Assessment and Plan - Time spent with patient Time spent with patient: Greater than 30 minutes (1) Encephalopathy acute Status: Acute Assessment and plan: His fevers continue, uncertain what the cause of this is. I spoke to the patient about a lumbar puncture and would like for this to happen. Current Visit: Yes (2) Fever Status: Acute Assessment and plan: Continue antibiotics and hopefully we can get a spinal tap today. Current Visit: Yes (3) Acute blood loss anemia Status: Acute Assessment and plan: Stable and improved. Current Visit: Yes (4) Hematemesis Status: Acute Assessment and plan: Scope performed and reveals esophageal varices with changes of portal hypertension gastropathy. Current Visit: Yes (5) Alcohol abuse Status: Acute Assessment and plan: I am concerned the fever may represent DTs if not an infection. We will place Ativan and have as needed. Current Visit: Yes Hospitalist: Subjective Interval history: Patient appears to be back to baseline. He has clear thoughts and is able to think logically at this time. There is no delirium or encephalopathy noted. He states he would like to leave. He has been having fevers yesterday and overnight. Denies any headache or neck pain. Has no complaints and states he feels fine. Exam - Constitutional Vitals: Period Temp Pulse Resp BP Sys/Avila Pulse Ox Last 24 Hr 98.1 F-99.5 F 80-89 16-21 109-133/72-86 92-96 General appearance: normal weight, no acute distress - Head Head exam: Present: normocephalic, atraumatic - Eye Eye exam: Present: EOMI Pupils: Present: IDA - ENT ENT exam: Present: normal exam - Neck Neck exam: Present: normal inspection - Respiratory Respiratory exam: Present: clear to auscultation bilaterally. Absent: rhonchi, wheezes - Cardiovascular Cardiovascular exam: Present: regular rate and rhythm. Absent: gallop, rubs, systolic murmur - GI/Abdominal GI/Abdominal exam: Present: normal bowel sounds, soft. Absent: distended, firm , guarding, tenderness, rebound - Extremities Exam Extremities exam: Present: normal inspection. Absent: calf tenderness, edema Results - Labs CBC & BMP: 03/24/17 06:23 03/24/17 06:23 Lab Results: I have reviewed the past 24 hour labs Quality Measures - VTE Contraindication No Overlap Therapy: Active Bleeding
[2017-03-25 15:47] LABS: Glucose,CSF 69 MG/DL (40-70)
[2017-03-25 16:06] LABS: Eosinophils,CSF 1 %; Lymphocytes,CSF 12 %; Monocytes,CSF 2 %; Neutrophils,CSF 84 %; Red Blood Cell,CSF 3871 C/CUMM; White Blood Cell,CSF 16 C/CUMM
[2017-03-25 16:07] LABS: Appearance,CSF HAZY
--- NOTE | 2017-03-25 16:28 | Post Interventional Procedure ---
Pre-op diagnosis: Encephalopathy, fever, alcohol abuse Post-op diagnosis: same Procedure: lumbar puncture Contrast: none Flouroscopy: 0.3 min Radiologist: Lazaro Kwong Anesthesia: local Specimens: other (10 mL blood tinged CSF sent) Estimated blood loss: none Complications: none Condition: stable Description/Findings: L2-L3 interspace was targeted without difficulty. The thecal sac was entered with 1 attempt. Initially, clear CSF was noted to be spontaneously produced from the needle. With subsequent minimal manipulation of the needle, immediate return of blood was noted. The needle was then removed. Pressure was held for 5 minutes to obtain hemostasis. A second needle stick was then performed with minimal blood-tinged CSF spontaneously produced from the needle. Opening pressure was 20 mm H2O. A total of 10 mL of blood-tinged CSF was removed. The needle was removed and sterile dressing was applied. The patient tolerated the procedure well. Assessment and Plan - Time spent with patient Time spent with patient: Less than 30 minutes
--- NOTE | 2017-03-25 16:43 | Interventional Radiology Rpt ---
Procedure: IR lumbar puncture diagnostic Clinical history: 52-year-old male with encephalopathy and fever. Procedure: Informed consent was obtained prior to procedure. Formal timeout was performed. Maximum sterile barrier technique was employed. The patient was placed prone on the fluoroscopy table. The low back was prepped and draped in a sterile fashion. A midline lumbar puncture was then performed at the L2-L3 interspace using a 20-gauge spinal needle. Fluoroscopic guidance was used and a captured image documents the needle position. The thecal sac was entered on 1 attempt. Initially, an opening pressure of 10 cm H2O was obtained. CSF was also clear/colorless. Subsequently with minimal needle repositioning, there was moderate blood from the needle. The needle was then removed and pressure was held for 5 minutes to obtain hemostasis. Repeat access into the thecal sac was then performed with image guidance on 1 attempt. At this point, the CSF was slightly blood-tinged and the opening pressure was 20 cm H2O. Subsequently, 10 milliliters of slightly blood-tinged CSF was withdrawn and sent to laboratory. The spinal needle was removed and a bandage placed the puncture site. Fluoroscopy time: 0.3 minutes. Total number of images for the procedure: 10 Consultations: None. Impression: Technically successful diagnostic lumbar puncture as described. PROCEDURE INTERPRETED AT [facility] DEPARTMENT OF RADIOLOGY Final Report Signed by: Lazaro Kwong
[2017-03-26] MEDS: MORPHINE 2 MG/1 ML SYRINGE IV PRN ×5 (00:15→21:34)
[2017-03-26] MEDS: cefTRIAXone 2,000 MG in SODIUM CHLORIDE 0.9% 100 ML IV SCH ×2 (01:23→13:52)
[2017-03-26] MEDS: THIAMINE IV SCH ×3 (03:00→22:06)
[2017-03-26] MEDS: FOLIC ACID 1 MG IV SCH ×3 (03:00→22:06)
[2017-03-26] MEDS: MULTIVITA IV SCH ×3 (03:00→22:06)
[2017-03-26] MEDS: [UNRECOGNIZED DRUG - OTHER] IV SCH ×3 (03:00→22:06)
[2017-03-26 04:31] LABS: Basophils % 0.6 % (0.0-0.8); Hematocrit 25.7 VOL% (42.0-52.0); Hemoglobin 7.9 GM/DL (14.0-18.0); Immature Granulocytes % 0.4 %; Immature Granulocytes Absolute 0.03 #; Lymphocytes # 1.6 10*3/uL (1.4-4.0); Mean Corpuscular HGB Conc 30.7 GM/DL (32-36); Mean Corpuscular Hemoglobin 24 PG (27-34); Mean Corpuscular Volume 77.2 FL (87-102); Monocytes # 0.7 10*3/uL (0.11-0.8); Monocytes % 9.9 % (1.7-12.7); Neutrophils # 4.5 10*3/uL (1.4-7.4); Neutrophils % 66.1 % (38.7-73.9); Red Blood Count 3.33 MC/CUMM (3.8-5.5); Red Cell Distribution Width 22.6 % (9.3-17.3); White Blood Count 6.8 T/CUMM (4-12)
[2017-03-26 04:35] LABS: Platelet Count 87 T/CUMM (130-400)
[2017-03-26 04:59] LABS: Hypochromasia 1+; Platelet Estimate Decreased
[2017-03-26 05:00] LABS: Microcytosis 1+
[2017-03-26] MEDS: VANCOMYCIN INJ 1,250 MG in SODIUM CHLORIDE 0.9% 250 ML IV SCH ×2 (06:52→17:14)
[2017-03-26] MEDS: LORazepam 2 MG/1 ML VIAL IV SCH ×3 (06:52→21:34)
[2017-03-26] MEDS: PANTOPRAZOLE 40 MG VIAL IV SCH ×2 (09:03→21:34)
[2017-03-26] MEDS ORDERED: POTASSIUM CHLORIDE 20 MEQ PACK PO ONE (09:05)
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
[2017-03-27] MEDS: MORPHINE 2 MG/1 ML SYRINGE IV PRN (01:10)
[2017-03-27] MEDS: cefTRIAXone 2,000 MG in SODIUM CHLORIDE 0.9% 100 ML IV SCH ×2 (01:59→13:53)
[2017-03-27] MEDS: VANCOMYCIN INJ 1,250 MG in SODIUM CHLORIDE 0.9% 250 ML IV SCH (05:44)
[2017-03-27] MEDS: LORazepam 2 MG/1 ML VIAL IV SCH ×2 (05:44→13:46)
[2017-03-27 07:52] LABS: Basophils % 0.6 % (0.0-0.8); Hematocrit 27.4 VOL% (42.0-52.0); Hemoglobin 8.3 GM/DL (14.0-18.0); Immature Granulocytes % 0.1 %; Immature Granulocytes Absolute 0.01 #; Lymphocytes # 1.3 10*3/uL (1.4-4.0); Lymphocytes % 19.5 % (21.2-54.2); Mean Corpuscular HGB Conc 30.3 GM/DL (32-36); Mean Corpuscular Hemoglobin 24 PG (27-34); Mean Corpuscular Volume 80.6 FL (87-102); Monocytes # 0.7 10*3/uL (0.11-0.8); Monocytes % 10.2 % (1.7-12.7); Neutrophils # 4.8 10*3/uL (1.4-7.4); Neutrophils % 69.6 % (38.7-73.9); Platelet Count 101 T/CUMM (130-400); Red Cell Distribution Width 23.3 % (9.3-17.3); White Blood Count 6.9 T/CUMM (4-12)
[2017-03-27 08:18] LABS: Calcium 7.4 MG/DL (8.5-10.1); Osmolality,Calculated 278.1 MOS/KG (273-304); Potassium 3.3 MMOL/L (3.5-5.1)
[2017-03-27 08:19] LABS: Eosinophils 2 % (0-10); Hypochromasia 1+; Lymphocytes 22 % (20-55); Ovalocytes Slight; Platelet Estimate Decreased; Segmented Neutrophils 72 % (50-85); Total Cells Counted 100
[2017-03-27 08:20] LABS: Microcytosis 1+
[2017-03-27] MEDS: MULTIVITA IV SCH (09:00)
[2017-03-27] MEDS: THIAMINE IV SCH (09:00)
[2017-03-27] MEDS: [UNRECOGNIZED DRUG - OTHER] IV SCH (09:00)
[2017-03-27] MEDS: FOLIC ACID 1 MG IV SCH (09:00)
[2017-03-27] MEDS: PANTOPRAZOLE 40 MG VIAL IV SCH (10:28)
[2017-03-27] MEDS ORDERED: POTASSIUM CHLORIDE 20 MEQ TABLET PO ONE (12:56)
[2017-03-27] MEDS ORDERED: FUROSEMIDE 40 MG/4 ML VIAL IV SCH (13:00)
[2017-03-27 16:38] VITALS: BP 123/79
--- NOTE | 2017-03-27 16:47 | Discharge Summary ---
Hospital Course - Hospital Course Hospital Course: Mr. Alvarez is a 52-year-old male that was admitted to the hospital with fever and altered mental status. This was thought to be related to acute alcohol withdrawal. The patient has improved over the course of the last 24-48 hours. I saw the patient today, this morning, for the first time and he was alert awake and oriented 3. I informed him that we would be planning his discharge for tomorrow and that I would diurese him throughout the course of today and replace his potassium. I was called at approximately 440 by the nursing staff who informed me that the patient was getting dressed and plan to leave the hospital AGAINST MEDICAL ADVICE. I called and spoke to the patient in his room. I explained to him that I did not think it was safe for him to be leaving the hospital at this time. He stated that he felt well enough to go home and that he had Lasix and potassium supplements at home. He was not interested in staying any longer in the hospital. He informed me that he was grateful for our care and that he had no hard feelings toward me or any of the staff members. He just did not want to stay in the hospital and wanted to go home. Informed me that he lives 50 miles away and would be calling family member to come pick him up. I tried to reason with the patient and asked him if there is anything I can do to change his mind and he respectfully declined. The patient will leave AGAINST MEDICAL ADVICE and will sign the appropriate paperwork denoting this. He was not given any prescriptions at the time of discharge. He informed me that he had Lasix, potassium and Protonix prescriptions at home. - Time spent with patient Time with patient DS: Greater than 30 minutes (Total discharge time for this patient, including [id number] time, clinical documentation, medication reconciliation was 40 minutes.) Diagnosis - Discharge Diagnosis (1) Alcohol abuse Status: Acute (2) Essential hypertension Status: Acute (3) Acute blood loss anemia Status: Acute (4) Encephalopathy acute Status: Acute Discharge Plan - Discharge Data Disposition: Left Against Medical Advice Contact your physician if you experience:: fever over 101, Nausea/Vomiting, Shortness of breath, Bleeding - Discharge Medications No Action chlordiazePOXIDE [Librium] 25 mg PO DAILY Pantoprazole Sodium 40 mg PO DAILY cloNIDine HCl [Clonidine HCl] 0.1 mg PO DAILY PRN PRN Reason: Anxiety - Follow Up or Referral - Forms/Instructions Exam - Constitutional Vitals: Period Temp Pulse Resp BP Sys/Avila Pulse Ox Last 24 Hr 98.2 F-99.8 F 80-96 20-22 121-148/75-88 93-98 Discharge Results Procedures and tests throughout hospitalization: Pending Orders 03/25/17 14:45 Fungal Culture w/ Prep Stat Meningitis Ags w/CSF Cult/Smea Routine Viral Culture, Non-Respiratory Stat 03/28/17 05:00 Vancomycin,Trough Timed Labs on day of discharge: Labs from last 24 hours 03/27/17 03/27/17 07:43 07:43 WBC 6.9 RBC 3.40 L Hgb 8.3 L Hct 27.4 L MCV 80.6 L MCH 24 L MCHC 30.3 L RDW 23.3 H Plt Count 101 L Neut % (Auto) 69.6 Lymph % (Auto) 19.5 L Doddridge % (Auto) 10.2 Eos % (Auto) 0.0 Baso % (Auto) 0.6 Neut # (Auto) 4.8 Lymph # (Auto) 1.3 L Dod[place]idge # (Auto) 0.7 Eos # (Auto) 0.0 Baso # (Auto) 0.0 Total Counted 100 Immature Gran % 0.1 Nucleated RBC % 0.0 Immature Gran # 0.01 Segmented Neutrophils 72 Lymphocytes 22 Monocytes 4 Eosinophils 2 Nucleated RBCs # 0.00 Platelet Estimate Decreased Hypochromasia 1+ Microcytosis 1+ Ovalocytes Slight Morphology Comment Sodium 142 Potassium 3.3 L Chloride 110 H Carbon Dioxide 25 Anion Gap 10.3 BUN 1 L Creatinine 0.60 L GFR Calculation 127 BUN/Creatinine Ratio 1.00 L Glucose 92 Calculated Osmolality 278.1 Calcium 7.4 L Preliminary micro results at discharge 03/25/17 14:45 CSF Culture - Preliminary Cerebral Spinal Fluid No Growth at 48 hours. DS: Provider Date of admission: 03/19/17 16:17 Primary care physician: . No PCP Attending physician on admission: Jessy Mcleod MD Consults: 03/19/17 14:37 Consult to Physician [CONS] Routine Comment: Please consult when patient arrives Consulting Provider: Kenji Dee When should Consulting Provider be notified: Now Person Notified: ANTONIO Date Notified: 03/19/17 Time Notified: 16:52 03/19/17 16:55 Consult to Pharmacy [CONS] Routine Reason for Pharmacy Consult: Adjust Meds Renal Funct 03/22/17 12:54 Consult to Pharmacy [CONS] Routine Reason for Pharmacy Consult: Dose/Manage Vancomycin 03/22/17 13:26 Consult to Pharmacy [CONS] Routine Reason for Pharmacy Consult: Dose/Manage Vancomycin 03/26/17 15:01 Consult to Occupational Therapy [CONS] Routine Reason for Occupational Therapy: Evaluate and Treat PT [Consult to Physical Therapy] [CONS] Routine Reason for Physical Therapy: Evaluate and Treat Discharging clinician: Adriana Adams MD Expected date of discharge: 03/27/17
== END 2017-03-27 17:00 | disposition left against medical advice (07) | DRG 377 ==
LOC: N.3E 16:17 → SUATTDRO 16:17
PROVIDERS: ADMIT Internal Medicine; ATTEND Family Medicine

== ENCOUNTER 2017-04-07 09:01 | Inpatient (IN) ==
[2017-04-07] MEDS ORDERED: PANTOPRAZOLE INJ 200 MG in SODIUM CHLORIDE 0.9% 250 ML IV SCH (09:30)
[2017-04-07 12:45] LABS: Basophils # 0.1 10*3/uL (0.0-0.2); Basophils % 0.5 % (0.0-0.8); Immature Granulocytes % 0.5 %; Immature Granulocytes Absolute 0.05 #; Lymphocytes # 1.8 10*3/uL (1.4-4.0); Lymphocytes % 16.2 % (21.2-54.2); Mean Corpuscular HGB Conc 29.6 GM/DL (32-36); Mean Corpuscular Hemoglobin 24 PG (27-34); Mean Corpuscular Volume 79.6 FL (87-102); Mean Platelet Volume 10.6 FL (9.6-12.0); Monocytes # 0.9 10*3/uL (0.11-0.8); Monocytes % 8.1 % (1.7-12.7); Neutrophils # 8.2 10*3/uL (1.4-7.4); Neutrophils % 74.7 % (38.7-73.9); Platelet Count 229 T/CUMM (130-400); Red Blood Count 3.39 MC/CUMM (3.8-5.5)
[2017-04-07 13:21] LABS: Albumin 2.7 G/DL (3.4-5.0); Bilirubin,Direct 0.4 MG/DL (0.0-0.20); Bilirubin,Indirect 0.2 MG/DL (0.0-1.0); Bilirubin,Total 0.6 MG/DL (0.2-1.0); Total Protein 7.3 G/DL (6.4-8.3)
[2017-04-07] MEDS: SODIUM CHLORIDE 0.9% 1,000 ML IV SCH ×2 (13:57→22:01)
[2017-04-07] MEDS ORDERED: ACETAMINOPHEN 500 MG TABLET PO PRN (13:59)
[2017-04-07 14:14] LABS: Hepatitis A Ab IgM Quant < 0.02 Index; Hepatitis A Ab IgM Result Negative (Negative); Hepatitis B Core IgM Quant 0.16 Index; Hepatitis B Core IgM Result Negative (Negative); Hepatitis B Surface Ag Quant 0.52 Index; Hepatitis B Surface Ag Result Negative (Negative); Hepatitis C Virus Ab Quant 0.42 Index; Hepatitis C Virus Ab Result Negative (Negative)
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
--- NOTE | 2017-04-07 16:06 | Ultrasound Report ---
Referring Physician: Luiz Duarte Exam: US abdomen Date: April 07, 2017 Reason: Evaluate for mass, cirrhosis, ascites Comparison: None Technique: Grayscale and color flow images of the abdomen were obtained. Ultrasound images were captured and stored. Findings: The liver measures 17.5 cm in length. There is diffuse increased echogenicity of the liver parenchyma, suggesting hepatic steatosis. No suspicious hepatic lesion is identified. No abnormal gallbladder wall thickening or pericholecystic fluid is identified. The common bile duct is normal in size, measuring 0.2 cm in diameter. The visualized pancreas is unremarkable. The right kidney measures 10.6 x 4.8 x 4.6 cm, and the left kidney measures 11.4 x 5.5 x 4.6 cm. No hydronephrosis or suspicious renal lesion is identified. The spleen measures 12.0 x 5.5 x 4.3 cm. Splenic volume is 283 cc. The abdominal aorta is normal in size, measuring up to 1.7 cm in diameter. The IVC is largely obscured by bowel gas. No ascites is seen. Impression: 1. Suggestion of hepatic steatosis. 2. There is no sonographic evidence of cholelithiasis or acute cholecystitis. PROCEDURE INTERPRETED AT [facility] DEPARTMENT OF RADIOLOGY Final Report Signed by: Dr. Dagoberto Merrill
[2017-04-07] MEDS: PROPRANOLOL 10 MG TABLET PO SCH ×2 (16:15→21:39)
[2017-04-07 17:55] LABS: Hematocrit 24.2 VOL% (42.0-52.0); Hemoglobin 7.2 GM/DL (14.0-18.0)
[2017-04-07] MEDS: chlordiazePOXIDE 25 MG CAPSULE PO SCH ×2 (18:56→21:39)
[2017-04-07] MEDS: AMINO ACIDS/DEXT/LYTES 4.25-5% 2,000 ML IV SCH (18:57)
[2017-04-07] MEDS: PANTOPRAZOLE 40 MG VIAL IV SCH (21:39)
[2017-04-08 00:55] LABS: Basophils % 0.3 % (0.0-0.8); Hematocrit 22.4 VOL% (42.0-52.0); Hemoglobin 6.8 GM/DL (14.0-18.0); Immature Granulocytes % 0.5 %; Immature Granulocytes Absolute 0.04 #; Lymphocytes # 2.2 10*3/uL (1.4-4.0); Lymphocytes % 25.3 % (21.2-54.2); Mean Corpuscular HGB Conc 30.4 GM/DL (32-36); Mean Corpuscular Hemoglobin 24 PG (27-34); Mean Corpuscular Volume 78.3 FL (87-102); Mean Platelet Volume 10.4 FL (9.6-12.0); Monocytes # 0.6 10*3/uL (0.11-0.8); Monocytes % 7.2 % (1.7-12.7); Neutrophils # 5.8 10*3/uL (1.4-7.4); Neutrophils % 66.7 % (38.7-73.9); Platelet Count 176 T/CUMM (130-400); Red Blood Count 2.86 MC/CUMM (3.8-5.5); Red Cell Distribution Width 23.4 % (9.3-17.3); White Blood Count 8.7 T/CUMM (4-12)
[2017-04-08 01:00] LABS: INR 1.2; PT Patient Result 12.8 SECS
[2017-04-08] MEDS: LORazepam 2 MG/1 ML VIAL IV PRN ×4 (02:16→22:05)
[2017-04-08] MEDS: SODIUM CHLORIDE 0.9% 1,000 ML IV SCH ×4 (08:39→18:01)
[2017-04-08] MEDS: FUROSEMIDE 20 MG TABLET PO SCH (08:39)
[2017-04-08] MEDS: PROPRANOLOL 10 MG TABLET PO SCH ×3 (08:40→21:22)
[2017-04-08] MEDS: PANTOPRAZOLE 40 MG VIAL IV SCH ×2 (08:40→21:22)
[2017-04-08] MEDS: THIAMINE 200 MG/2 ML VIAL IV SCH (08:40)
[2017-04-08] MEDS: chlordiazePOXIDE 25 MG CAPSULE PO SCH ×4 (08:40→21:22)
[2017-04-08] MEDS: SPIRONOLACTONE 50 MG TABLET PO SCH (08:41)
--- NOTE | 2017-04-08 09:09 | Gastrointestinal Progress Note ---
<Jen Stokes Tg - Last Filed: 04/08/17 09:05> Assessment and Plan (1) Melena Status: Acute Assessment and plan: 04/08-reports of dark tarry stools with nausea vomiting without coffee-ground or hematemesis. Hemoglobin down to 6.8 with 2 units of PRBC pending transfusion. Heme positive stools reported in ER. Plan an addendum to follow by Dr. Dee. Current Visit: Yes (2) Alcoholic cirrhosis Status: Acute Assessment and plan: 04/08-elevated ammonia level 78. Negative hepatitis panel. Negative AFP. Albumin 2.7. For transfusion for hemoglobin 6.8. No signs of DTs at present time. Start lactulose therapy. Plan an addendum to follow by Dr. Dee. Current Visit: Yes Gastroenterology - PN: Subj Interval history: CC: Melena, anemia Patient is seen awake, alert lying in bed. States he is feeling some better now than he did on admission. Patient was admitted on yesterday with complaints of dark stools and nausea and vomiting. He denies any hematemesis or coffee-ground emesis with this episode. He is unable to recall his last drink of alcohol. Abdomen soft, nontender. Hemoglobin on admission noted to be 8 now trending down to 6.8. He has 2 units of packed red blood cells pending at present time. Ammonia noted to be elevated today at 78. He does not have lactulose ordered at present time. ROS: Denies shortness of breath or chest pain. Exam (Progress Note) - Constitutional Vitals: Period Temp Pulse Resp BP Sys/Avila Pulse Ox Last 24 Hr 96.5 F-97.8 F 68-94 12-20 94-126/54-75 97-99 General appearance: normal weight, no acute distress - Head Head exam: Present: normal inspection, normocephalic - Eye Eye exam: Present: other (Lids and conjunctive are unremarkable). Absent: scleral icterus - ENT ENT exam: Present: normal exam, normal oropharynx - Neck Neck exam: Present: normal inspection - Respiratory Respiratory exam: Present: clear to auscultation bilaterally. Absent: rales, rhonchi, wheezes - Cardiovascular Cardiovascular exam: Present: regular rate and rhythm. Absent: diastolic murmur , JVD, systolic murmur - GI/Abdominal GI/Abdominal exam: Present: normal bowel sounds, soft. Absent: ascites, distended, mass, organomegaly, tenderness - Extremities Exam Extremities exam: Present: normal inspection, full ROM - Back Exam Back exam: Present: normal inspection - Neurological Exam Neurological exam: Present: alert, altered - Psychiatric Psychiatric exam: Present: normal affect, normal mood - Skin Skin exam: Present: normal color, warm, dry Results - Labs CBC & BMP: 04/08/17 00:40 Lab Results: I have reviewed the past 24 hour labs <Kenji Dee - Last Filed: 04/08/17 18:21> Exam (Progress Note) - Constitutional Vitals: Period Temp Pulse Resp BP Sys/Avila Pulse Ox Last 24 Hr 97.3 F-98.6 F 68-76 16-20 94-126/54-75 97-99 Results - Labs CBC & BMP: 04/08/17 00:40
[2017-04-08] MEDS: LACTULOSE 20 GM/30 ML UDCUP PO SCH ×2 (14:37→21:22)
--- NOTE | 2017-04-08 14:38 | Hospitalist Progress Note ---
Assessment and Plan (1) Hematemesis Status: Acute Assessment and plan: These have been prior to admission has not happened again in the house; continue to observe Current Visit: No Qualifiers: Nausea presence: with nausea Qualified Code(s): K92.0 - Hematemesis; R11.0 - Nausea (2) Essential hypertension Status: Acute Current Visit: No (3) Acute blood loss anemia Status: Acute Assessment and plan: Patient will be transfused 2 units of packed cells overnight. Repeat H&H in the morning as already ordered Current Visit: No (4) Encephalopathy acute Status: Acute Assessment and plan: His ammonia today was high 78. Start him on lactulose 20 g p.o. 3 times daily with ammonia in the morning Current Visit: No Hospitalist: Subjective Interval history: Patient is seen interviewed and examined and chart has been reviewed. He has clear liquid diet now. Not from gastroenterology is greatly appreciated. Patient has dropped his hemoglobin to 6.8. His plan to transfuse him 2 units of blood today. Admitted to the hospital with GI bleeding history of cirrhosis with esophageal varices. There is a history of hematemesis and hematochezia at admission. Exam - Constitutional Vitals: Period Temp Pulse Resp BP Sys/Avila Pulse Ox Last 24 Hr 96.7 F-97.8 F 68-88 16-20 94-126/54-75 97-99 General appearance: normal weight - Head Head exam: Present: normocephalic, atraumatic - Eye Eye exam: Present: EOMI, other (Anicteric sclera no conjunctival petechiae) Pupils: Present: IDA - ENT ENT exam: Present: normal oropharynx - Neck Neck exam: Present: normal inspection - Respiratory Respiratory exam: Present: clear to auscultation bilaterally - Cardiovascular Cardiovascular exam: Present: regular rate and rhythm - GI/Abdominal GI/Abdominal exam: Present: normal bowel sounds, soft, other (No guarding) - Extremities Exam Extremities exam: Present: full ROM, other (Generalized weakness) - Back Exam Back exam: Present: normal inspection - Neurological Exam Neurological exam: Present: alert, oriented X3, CN II-XII intact - Psychiatric Psychiatric exam: Present: normal affect, normal mood, other (Noted asthenia) - Skin Skin exam: Present: normal color, warm, dry Results - Labs CBC & BMP: 05/08/17 00:40 Lab Results: I have reviewed the past 24 hour labs
[2017-04-08] MEDS: AMINO ACIDS/DEXT/LYTES 4.25-5% 2,000 ML IV SCH (17:48)
[2017-04-08] MEDS ORDERED: SODIUM CHLORIDE 0.9% 250 ML IV PRN (19:27)
[2017-04-09 05:54] LABS: Basophils % 0.4 % (0.0-0.8); Hematocrit 28.5 VOL% (42.0-52.0); Hemoglobin 8.5 GM/DL (14.0-18.0); Immature Granulocytes % 0.4 %; Immature Granulocytes Absolute 0.03 #; Lymphocytes # 2.1 10*3/uL (1.4-4.0); Lymphocytes % 24.2 % (21.2-54.2); Mean Corpuscular HGB Conc 29.8 GM/DL (32-36); Mean Corpuscular Hemoglobin 24 PG (27-34); Mean Platelet Volume 11.2 FL (9.6-12.0); Monocytes # 0.5 10*3/uL (0.11-0.8); Monocytes % 5.8 % (1.7-12.7); Neutrophils # 5.9 10*3/uL (1.4-7.4); Neutrophils % 69.2 % (38.7-73.9); Platelet Count 173 T/CUMM (130-400); Red Blood Count 3.52 MC/CUMM (3.8-5.5); Red Cell Distribution Width 21.1 % (9.3-17.3); White Blood Count 8.5 T/CUMM (4-12)
[2017-04-09 06:03] LABS: INR 1.2; PT Patient Result 12.6 SECS
[2017-04-09] MEDS: SODIUM CHLORIDE 0.9% 1,000 ML IV SCH ×4 (06:11→23:45)
[2017-04-09 06:31] LABS: Calcium 7.9 MG/DL (8.5-10.1); Magnesium 2.1 MG/DL (1.8-2.4); Osmolality,Calculated 274.5 MOS/KG (273-304); Potassium 4.1 MMOL/L (3.5-5.1)
[2017-04-09 06:37] LABS: Hypochromasia 2+; Microcytosis 1+; Target Cells Slight
[2017-04-09 06:38] LABS: Platelet Estimate Adequate
--- NOTE | 2017-04-09 09:21 | Gastrointestinal Progress Note ---
<Jen Stokes Tg - Last Filed: 04/09/17 09:11> Assessment and Plan (1) Melena Status: Acute Assessment and plan: 04/09-No reports of melena today, reports normal BM. Hgb holding at 8.8 following transfusion. Plan and addendum to follow by Dr Dee. 04/08-reports of dark tarry stools with nausea vomiting without coffee-ground or hematemesis. Hemoglobin down to 6.8 with 2 units of PRBC pending transfusion. Heme positive stools reported in ER. Plan an addendum to follow by Dr. Dee. Current Visit: Yes (2) Alcoholic cirrhosis Status: Acute Assessment and plan: 04/09-Ammonia down to 45 with good bowel movements on Lactulose. No signs of DTs/ withdrawal seizures at present time. Plan and addendum to follow by Dr Dee. 04/08-elevated ammonia level 78. Negative hepatitis panel. Negative AFP. Albumin 2.7. For transfusion for hemoglobin 6.8. No signs of DTs at present time. Start lactulose therapy. Plan an addendum to follow by Dr. Dee. Current Visit: Yes Gastroenterology - PN: Subj Interval history: CC: Hematemesis Pt is awake and alert lying in bed. States he is feeling better today and did rest last night. He states the pain is better controlled as well. He denies any nausea or vomiting. He is tolerating small amounts of clear liquid diet at this time. Abdomen is soft, nontender. No signs of DTs or withdrawal seizures noted. Pt hemoglobin is improved today at 8.5 following 2 units of PRBC. ROS: Denies SOB or chest pain Exam (Progress Note) - Constitutional Vitals: Period Temp Pulse Resp BP Sys/Avila Pulse Ox Last 24 Hr 97.4 F-100.6 F 68-74 16-18 84-114/43-71 95-100 General appearance: normal weight, no acute distress - Head Head exam: Present: normal inspection, normocephalic - Eye Eye exam: Present: other (lids and conjunctiva unremarkable). Absent: scleral icterus - ENT ENT exam: Present: normal exam, normal oropharynx - Neck Neck exam: Present: normal inspection - Respiratory Respiratory exam: Present: clear to auscultation bilaterally. Absent: rales, rhonchi, wheezes - Cardiovascular Cardiovascular exam: Present: regular rate and rhythm. Absent: diastolic murmur , JVD, systolic murmur - GI/Abdominal GI/Abdominal exam: Present: normal bowel sounds, soft. Absent: ascites, distended, mass, organomegaly, tenderness - Extremities Exam Extremities exam: Present: normal inspection, full ROM - Back Exam Back exam: Present: normal inspection - Neurological Exam Neurological exam: Present: alert, oriented X3 - Psychiatric Psychiatric exam: Present: normal affect, normal mood - Skin Skin exam: Present: normal color, warm, dry Results - Labs CBC & BMP: 04/09/17 05:17 04/09/17 05:17 Lab Results: I have reviewed the past 24 hour labs <Kenji Dee - Last Filed: 04/09/17 10:40> Exam (Progress Note) - Constitutional Vitals: Period Temp Pulse Resp BP Sys/Avila Pulse Ox Last 24 Hr 97.4 F-100.6 F 68-74 16-18 84-114/43-71 95-100 Results - Labs CBC & BMP: 04/09/17 05:17 04/09/17 05:17
[2017-04-09] MEDS: LORazepam 2 MG/1 ML VIAL IV PRN ×4 (09:30→21:33)
[2017-04-09] MEDS: chlordiazePOXIDE 25 MG CAPSULE PO SCH ×4 (10:00→21:33)
[2017-04-09] MEDS: PROPRANOLOL 10 MG TABLET PO SCH ×3 (11:07→21:33)
[2017-04-09] MEDS: FUROSEMIDE 20 MG TABLET PO SCH (11:07)
[2017-04-09] MEDS: SPIRONOLACTONE 50 MG TABLET PO SCH (11:07)
[2017-04-09] MEDS: LACTULOSE 20 GM/30 ML UDCUP PO SCH ×2 (11:07→21:32)
[2017-04-09] MEDS: THIAMINE 200 MG/2 ML VIAL IV SCH (11:08)
[2017-04-09] MEDS: PANTOPRAZOLE 40 MG VIAL IV SCH ×2 (11:08→21:32)
[2017-04-09] MEDS: AMINO ACIDS/DEXT/LYTES 4.25-5% 2,000 ML IV SCH (16:05)
--- NOTE | 2017-04-09 18:12 | Hospitalist Progress Note ---
Hospitalist: Subjective Interval history: Pt reports he is hungry. he went off the floor today to smoke. No fever. No cp or SOB. No abd pain. Denies epistaxis, melena, BRBPR, bleeding gums, hematuria or abd pain. Exam - Constitutional Vitals: Period Temp Pulse Resp BP Sys/Avila Pulse Ox Last 24 Hr 97.9 F-100.6 F 66-74 16-18 84-114/43-79 95-100 Exam: A and O x 2 no sweats or shakes RRR no M CTAB nonlabored Soft, NT, ND, +BS Warm no c/c/e; ARMAS Results - Labs CBC & BMP: 04/09/17 05:17 04/09/17 05:17 - Impressions (1) Hematemesis in a patient with chronic alcohol use and suspected cirrhosis and possible esophageal varices Status: Acute Assessment and plan: These have been prior to admission has not happened again in the house; continue to observe. Cont PPI. On Clear diet. Try full liquid diet. Gi following Current Visit: No Qualifiers: Nausea presence: with nausea Qualified Code(s): K92.0 - Hematemesis; R11.0 - Nausea (2) Essential hypertension Status: Acute Current Visit: No - controlled. Cont current therapy (3) Acute blood loss anemia due to GIB Status: Acute Assessment and plan: s/p 2U PRBCs. serial H&H. Current Visit: No (4) Encephalopathy acute- resolved. likely due to possible alcohol withdrawal and hyperammonemia Status: Acute Assessment and plan: -Cont lactulose 20 g p.o. 3 times daily with serial ammonia levels. Wean librium to 25mg po TID x 1 day then 25mg po BID x 1 day then 25mg po daily Current Visit: No SCDs for DVT prophylaxis D/W pt and nurse and all questions answered. Specialty Discharge - Follow Up or Referrals
[2017-04-10] MEDS: LORazepam 2 MG/1 ML VIAL IV PRN ×3 (04:50→21:11)
[2017-04-10 07:23] LABS: Hematocrit 25.9 VOL% (42.0-52.0)
[2017-04-10 07:24] LABS: INR 1.2; PT Patient Result 12.9 SECS
[2017-04-10 07:27] LABS: Hemoglobin 7.9 GM/DL (14.0-18.0)
[2017-04-10 07:55] LABS: Albumin 2.4 G/DL (3.4-5.0); Bilirubin,Total 1.5 MG/DL (0.2-1.0); Calcium 7.5 MG/DL (8.5-10.1); Magnesium 2.1 MG/DL (1.8-2.4); Phosphorous 3.2 MG/DL (2.5-4.9); Potassium 3.9 MMOL/L (3.5-5.1); Total Protein 6.3 G/DL (6.4-8.3)
[2017-04-10] MEDS: THIAMINE 200 MG/2 ML VIAL IV SCH (08:45)
[2017-04-10] MEDS: SPIRONOLACTONE 50 MG TABLET PO SCH (08:47)
[2017-04-10] MEDS: LACTULOSE 20 GM/30 ML UDCUP PO SCH ×2 (08:48→21:12)
[2017-04-10] MEDS: FUROSEMIDE 20 MG TABLET PO SCH (08:48)
[2017-04-10] MEDS: PROPRANOLOL 10 MG TABLET PO SCH ×3 (08:48→21:11)
[2017-04-10] MEDS: chlordiazePOXIDE 25 MG CAPSULE PO SCH (08:48)
[2017-04-10] MEDS: SODIUM CHLORIDE 0.9% 1,000 ML IV SCH (08:50)
[2017-04-10] MEDS: PANTOPRAZOLE 40 MG VIAL IV SCH (08:52)
--- NOTE | 2017-04-10 11:50 | Hospitalist Progress Note ---
Hospitalist: Subjective Interval history: No melena or BRBPR. Tolerated full liquid diet. No abd pain. No fever. Still going outside to smoke. Exam - Constitutional Vitals: Period Temp Pulse Resp BP Sys/Avila Pulse Ox Last 24 Hr 97.6 F-99.4 F 66-77 16-19 94-126/51-79 95-100 Exam: A and O x 2 no sweats or shakes RRR no M CTAB nonlabored Soft, NT, ND, +BS Warm no c/c/e; ARMAS Results - Labs CBC & BMP: 04/10/17 05:58 04/10/17 05:58 - Impressions (1) Hematemesis in a patient with chronic alcohol use and suspected cirrhosis and possible esophageal varices Status: Acute Assessment and plan: Episodes were prior to admission. None reported since. Cont PPI but change to oral. Advance to soft diet. GI following Current Visit: No Qualifiers: Nausea presence: with nausea Qualified Code(s): K92.0 - Hematemesis; R11.0 - Nausea (2) Essential hypertension Status: Acute Current Visit: No - controlled. Cont current therapy (3) Acute blood loss anemia due to GIB- improved Status: Acute Assessment and plan: s/p 2U PRBCs. serial H&H. Current Visit: No (4) Encephalopathy acute- resolved. likely due to possible alcohol withdrawal and hyperammonemia Status: Acute Assessment and plan: -Cont lactulose 20 g p.o. 3 times daily with serial ammonia levels. Wean librium to 25mg po TID to BID x 1 day then 25mg po daily Current Visit: No SCDs for DVT prophylaxis D/W pt and nurse and all questions answered. h and H is am. If stable and GI agrees, dc to home. Specialty Discharge - Follow Up or Referrals
[2017-04-10] MEDS: AMINO ACIDS/DEXT/LYTES 4.25-5% 2,000 ML IV SCH (17:03)
[2017-04-10] MEDS ORDERED: chlordiazePOXIDE 25 MG CAPSULE PO SCH (21:00)
[2017-04-10] MEDS: PANTOPRAZOLE 40 MG TABLET PO SCH (21:12)
[2017-04-11 04:42] LABS: Hematocrit 27.3 VOL% (42.0-52.0); Hemoglobin 8.4 GM/DL (14.0-18.0)
[2017-04-11] MEDS ORDERED: chlordiazePOXIDE 25 MG CAPSULE PO SCH (09:00)
[2017-04-11] MEDS ORDERED: THIAMINE 100 MG TABLET PO SCH (09:00)
--- NOTE | 2017-04-11 09:06 | Hospitalist Progress Note ---
Hospitalist: Subjective Interval history: No new complaints. No significant overnight events. "I want to go home." Exam - Constitutional Vitals: Period Temp Pulse Resp BP Sys/Avila Pulse Ox Last 24 Hr 97.7 F-98.9 F 71-80 16-20 106-128/68-78 96-100 Exam: A and O x 2 no sweats or shakes RRR no M CTAB nonlabored Soft, NT, ND, +BS Warm no c/c. Trace lower extremity edema; ARMAS Results - Labs CBC & BMP: 04/11/17 04:03 04/10/17 05:58 - Impressions (1) Hematemesis in a patient with chronic alcohol use and suspected cirrhosis and possible esophageal varices Status: Acute Assessment and plan: Episodes were prior to admission. None reported since. Cont PPI but change to oral. Cont soft diet. GI following Current Visit: No Qualifiers: Nausea presence: with nausea Qualified Code(s): K92.0 - Hematemesis; R11.0 - Nausea (2) Essential hypertension Status: Acute Current Visit: No - controlled. Cont current therapy (3) Acute blood loss anemia due to GIB- improved Status: Acute Assessment and plan: s/p 2U PRBCs. serial H&H. Current Visit: No (4) Encephalopathy acute- resolved. likely due to possible alcohol withdrawal and hyperammonemia Status: Acute Assessment and plan: -Cont lactulose 20 g p.o. 3 times daily with serial ammonia levels. Wean librium to 25mg po daily Current Visit: No (5) Ongoing tobacco use - recommend cessation. Pt counseled. SCDs for DVT prophylaxis D/W pt and nurse and all questions answered. DC home. See orders and discharge summary Specialty Discharge - Follow Up or Referrals
[2017-04-11] MEDS: PANTOPRAZOLE 40 MG TABLET PO SCH (09:18)
[2017-04-11] MEDS: SPIRONOLACTONE 50 MG TABLET PO SCH (09:19)
[2017-04-11] MEDS: PROPRANOLOL 10 MG TABLET PO SCH (09:19)
[2017-04-11] MEDS: FUROSEMIDE 20 MG TABLET PO SCH (09:19)
[2017-04-11] MEDS: LACTULOSE 20 GM/30 ML UDCUP PO SCH (09:19)
[2017-04-11 11:21] VITALS: BP 96/61
--- NOTE | 2017-04-11 12:51 | Discharge Summary ---
Hospital Course - Hospital Course Hospital Course: Patient is a 52-year-old male with a history of cirrhosis due to chronic alcohol use and possible esophageal varices who it was admitted to the hospital with hematemesis. He was initially made n.p.o. and was started on IV Protonix twice a day. GI was consulted to assist with his management. He was able to be started on a clear diet and was advanced as he tolerated. He did have acute blood loss anemia due to suspected GI bleed. He was transfused 2 units of packed red blood cells and hemoglobin remained stable thereafter. He was also treated for acute encephalopathy thought due to possible alcohol withdrawal and hyperammonemia. He was started on lactulose 20 g by mouth 3 times a day and serial ammonia levels revealed improvement. He was also started on a Librium taper of 25 mg by mouth 4 times a day then 3 times a day for 1 day then 2 times a day for 1 day and then he was resumed on his home dose of 25 mg by mouth daily. Patient was counseled on alcohol and smoking cessation. He was treated with TPN which was able to be weaned as his oral intake improved. GI did not feel any endoscopy was warranted this hospitalization and encouraged alcohol cessation. Once he was cleared by all consultants patient was discharged to home for ongoing care. - Time spent with patient Time with patient DS: Greater than 30 minutes (41 minutes arranging this discharge) Specialty Discharge - Follow Up or Referrals Follow up with: Kenji Dee MD [Physician] - 1 Month (Follow-up GI bleed) , pcp [Other] - 2 Weeks Discharge Plan - Discharge Data Disposition: Disch To Home/Self Care Condition at Discharge: Stable Discharge Diet: advance to your usual diet Activity: other (No alcohol, NSAIDs, aspirin or blood thinners. Avoid tobacco use) Contact your physician if you experience:: fever over 101, Difficulty voiding, Redness or swelling, Nausea/Vomiting, Shortness of breath, Bleeding, pain uncontrolled by pain medications - Discharge Medications New Furosemide Tab [Lasix Tab] 10 mg PO DAILY #30 tablet Lactulose Liquid [Chronulac] 20 gm PO BID #1800 mls Pantoprazole Tab [Protonix Tab] 40 mg PO BID #60 tablet Spironolactone [Aldactone] 50 mg PO DAILY #30 tablet Thiamine Tab [Vitamin B1 Tab] 100 mg PO DAILY #30 tablet Continue chlordiazePOXIDE [Librium] 25 mg PO DAILY cloNIDine HCl [Clonidine HCl] 0.1 mg PO DAILY PRN PRN Reason: Anxiety Discontinued Pantoprazole Sodium 40 mg PO DAILY - Follow Up or Referral - Forms/Instructions Instructions: Gastrointestinal Bleeding (DC), Abuse of Alcohol (DC), Esophageal Varices (DC) Exam - Constitutional Vitals: Period Temp Pulse Resp BP Sys/Avila Pulse Ox Last 24 Hr 97.7 F-98.9 F 71-80 16-20 96-128/61-78 96-100 Exam: Please see my physical exam from the progress note today Discharge Results Procedures and tests throughout hospitalization: Pending Orders 04/08/17 09:05 Occult Blood, Stool Stat Labs on day of discharge: Labs from last 24 hours 04/11/17 04:03 Hgb 8.4 L Hct 27.3 L DS: Provider Date of admission: 04/07/17 09:03 Primary care physician: . No PCP Attending physician on admission: Aguilar Pritchett MD Consults: 04/07/17 09:06 Consult to Physician [CONS] Routine Comment: Patient known to you, UGIB Consulting Provider: Kenji Dee Consult to Specialist Group: Gastroenterology Person Notified: DR ROACH Date Notified: 04/07/17 Time Notified: 12:37 04/07/17 13:41 Consult to Pharmacy [CONS] Routine Reason for Pharmacy Consult: Adjust Meds Renal Funct Discharging clinician: Angle Sharp MD
--- NOTE | 2017-04-11 12:55 | Discharge Summary ---
Hospital Course - Hospital Course Hospital Course: This 52-year-old male who was admitted in the lateral transfer from [facility] 04/07/2017 for further evaluation of anemia and hematemesis. On admission his H&H was 7.7 and 24.6. Gastroenterology was consulted. Patient was found to have an upper GI bleed, esophageal varices and alcoholic cirrhosis and portal hypertensive gastropathy. The patient was started on low-dose nonspecific beta blockers, propranolol, for esophageal varices and he was started on PPI treatment for the GI bleed. There is no indication for GI endoscopy at this time. GI recommended continued medical management. He continued to be anemic and was transfused with 2 units of packed red blood cells. The patient's hospitalization was relatively uncomplicated. The patient is noted to be fairly abusive to the system and noncompliant to the point that he threatened to leave AMA and even signed AMA papers until he was convinced to stay for the remainder of his evaluation. At this time the patient 's H&H is stable at 8.5 and 28.5. He is stable for discharge at this time and will need outpatient follow-up with his PCP and GI. Additional discharge instructions to follow in discharge orders and addendum per Dr. Sharp. - Time spent with patient Time with patient DS: Greater than 30 minutes Specialty Discharge - Follow Up or Referrals Discharge Plan - Discharge Medications New Furosemide Tab [Lasix Tab] 10 mg PO DAILY #30 tablet Lactulose Liquid [Chronulac] 20 gm PO BID #1800 mls Pantoprazole Tab [Protonix Tab] 40 mg PO BID #60 tablet Spironolactone [Aldactone] 50 mg PO DAILY #30 tablet Thiamine Tab [Vitamin B1 Tab] 100 mg PO DAILY #30 tablet Continue chlordiazePOXIDE [Librium] 25 mg PO DAILY cloNIDine HCl [Clonidine HCl] 0.1 mg PO DAILY PRN PRN Reason: Anxiety Discontinued Pantoprazole Sodium 40 mg PO DAILY - Follow Up or Referral - Forms/Instructions Instructions: Gastrointestinal Bleeding (DC), Abuse of Alcohol (DC), Esophageal Varices (DC) Exam - Constitutional Vitals: Period Temp Pulse Resp BP Sys/Avila Pulse Ox Last 24 Hr 97.7 F-98.9 F 71-80 16-20 96-128/61-78 96-100 Discharge Results Procedures and tests throughout hospitalization: Pending Orders 04/08/17 09:05 Occult Blood, Stool Stat Labs on day of discharge: Labs from last 24 hours 04/11/17 04:03 Hgb 8.4 L Hct 27.3 L DS: Provider Date of admission: 04/07/17 09:03 Primary care physician: . No PCP Attending physician on admission: Aguilar Pritchett MD Consults: 04/07/17 09:06 Consult to Physician [CONS] Routine Comment: Patient known to you, UGIB Consulting Provider: Kenji Dee Consult to Specialist Group: Gastroenterology Person Notified: DR ROACH Date Notified: 04/07/17 Time Notified: 12:37 04/07/17 13:41 Consult to Pharmacy [CONS] Routine Reason for Pharmacy Consult: Adjust Meds Renal Funct Discharging clinician: Demetrius NG Expected date of discharge: 04/11/17
== END 2017-04-11 13:46 | disposition home or self-care (01) | DRG 441 ==
LOC: N.3E 09:03 → SUATTDRO 09:03
PROVIDERS: ADMIT Internal Medicine Infectious Disease; ATTEND Pediatrics

== ENCOUNTER 2017-05-10 08:11 | Inpatient (IN) ==
[2017-05-10] MEDS ORDERED: ACETAMINOPHEN 325 MG TABLET PO PRN (10:49)
[2017-05-10 11:57] LABS: Basophils % 0.3 % (0.0-0.8); Hematocrit 26.2 VOL% (42.0-52.0); Hemoglobin 7.9 GM/DL (14.0-18.0); Immature Granulocytes % 0.4 %; Immature Granulocytes Absolute 0.04 #; Lymphocytes # 2.6 10*3/uL (1.4-4.0); Lymphocytes % 27.8 % (21.2-54.2); Mean Corpuscular HGB Conc 30.2 GM/DL (32-36); Mean Corpuscular Hemoglobin 24 PG (27-34); Mean Corpuscular Volume 78.9 FL (87-102); Mean Platelet Volume 11.3 FL (9.6-12.0); Monocytes # 0.6 10*3/uL (0.11-0.8); Monocytes % 5.9 % (1.7-12.7); Neutrophils # 6.1 10*3/uL (1.4-7.4); Neutrophils % 65.6 % (38.7-73.9); Platelet Count 179 T/CUMM (130-400); Red Blood Count 3.32 MC/CUMM (3.8-5.5); Red Cell Distribution Width 20.6 % (9.3-17.3); White Blood Count 9.3 T/CUMM (4-12)
[2017-05-10 12:05] LABS: INR 1.2; PT Patient Result 12.4 SECS; Partial Thromboplastin Time 24.2 SECS (0-40)
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
[2017-05-10 12:36] LABS: Albumin 3.1 G/DL (3.4-5.0); Bilirubin,Total 0.7 MG/DL (0.2-1.0); Calcium 8.4 MG/DL (8.5-10.1); Osmolality,Calculated 279.5 MOS/KG (273-304); Potassium 4.4 MMOL/L (3.5-5.1); Thyroid Stimulating Hormone 1.76 uIU/ml (0.358-3.74); Total Protein 7.1 G/DL (6.4-8.3)
[2017-05-10] MEDS ORDERED: SODIUM CHLORIDE 0.9% 250 ML IV PRN (12:58)
[2017-05-10] MEDS: PANTOPRAZOLE 40 MG TABLET PO SCH ×2 (14:30→20:38)
[2017-05-10] MEDS: FOLIC ACID 1 MG TABLET PO SCH (14:30)
[2017-05-10] MEDS: THIAMINE 100 MG TABLET PO SCH (14:30)
[2017-05-10] MEDS: SODIUM CHLORIDE 0.9% 1,000 ML IV SCH (14:34)
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
--- NOTE | 2017-05-10 16:28 | CT Report ---
CT angio abd/pel GI Bleed TECHNIQUE: Axial CT images of the Abdomen and Pelvis were obtained during the arterial phase of contrast injection. 3-D vascular MIPS reconstructions and multiplanar reformats were evaluated. Omnipaque 350, 100 cc was administered intravenously with no immediate complication. Dose reduction: This CT exam was performed using one or more of the following dose reduction techniques: Automated exposure control, automated adjustment of the mA and/or KV according to patient size, or use of iterative reconstruction technique. Total DLP: 1472 COMPARISON: None available CLINICAL HISTORY: GI bleeding CTA FINDINGS: Distal thoracic aorta is nonaneurysmal. There is minimal atherosclerotic plaque noted. The abdominal aorta is also nonaneurysmal with minimal scattered atherosclerotic plaque. The celiac and superior mesenteric arteries are essentially widely patent with minimal atherosclerotic plaque and no significant luminal stenosis. Bilateral renal arteries appear widely patent. The inferior mesenteric artery is also patent but diminutive in size. The distal aorta demonstrates multifocal atherosclerotic plaque. There is at least mild (40-50%) luminal stenosis at the proximal right common iliac artery. Multifocal atherosclerotic plaque is noted within the bilateral external and internal iliac vessels which are otherwise patent. Detailed assessment of the colon does not demonstrate evidence of active extravasation on arterial phase images. There is no definite evidence of contrast extravasation within the central small bowel. There is no bowel dilatation. On delayed images, there is no suggestion of delayed intraluminal hemorrhage with contrast accumulation. NON--CTA FINDINGS: Very minimal posterior basilar atelectatic changes are noted bilaterally. Lung bases are otherwise clear. There is no pleural or pericardial effusion. ABDOMEN: Liver/Gallbladder: No abnormal enhancing lesions. No biliary ductal dilatation. No gallstones. Gallbladder is collapsed. The portal vein is patent. Spleen: No acute findings. Pancreas: No acute findings. Adrenals: Within normal limits in appearance. Kidneys: Both kidneys enhance symmetrically. There is symmetric excretion of contrast from both kidneys on delayed images. Bowel/mesentery: Small bowel is nondilated. There is no free fluid/air within the abdomen. There is suggestion of mild mucosal thickening within the cecum and a descending colon. The appendix appears normal. Minimal diverticular disease is noted. There is no CT evidence of acute diverticulitis. Retroperitoneum: No significant retroperitoneal adenopathy. PELVIS: No free fluid. Bladder appears grossly unremarkable for degree of distention. There is no adenopathy. Prostate is not enlarged. BONES: No acute or suspicious osseous abnormalities are identified. Mild degenerative changes noted at the lumbosacral junction. IMPRESSION: 1. No definite evidence of acute active hemorrhage/contrast extravasation seen on arterial or delayed images. 2. Mucosal thickening and pericolonic fat stranding within the right hemiabdomen is nonspecific but may represent an underlying infectious/inflammatory colitis. Minimal diverticular disease is also noted possibly representing an uncomplicated acute diverticulitis. There is no evidence of perforation. 05/10/2017 4:18 PM PROCEDURE INTERPRETED AT [facility] DEPARTMENT OF RADIOLOGY Final Report Signed by: Lazaro Kwong
[2017-05-10 17:23] LABS: Hemoglobin 6.5 GM/DL (14.0-18.0)
[2017-05-10] MEDS: NICOTINE 21 MG/24 HR PATCH TRANSDERM SCH (17:34)
[2017-05-10] MEDS ORDERED: ZALEPLON 5 MG CAPSULE ONE (22:27)
[2017-05-10] MEDS: ZALEPLON 5 MG CAPSULE PO PRN (22:29)
[2017-05-11 02:28] LABS: Hematocrit 23.4 VOL% (42.0-52.0); Hemoglobin 7.5 GM/DL (14.0-18.0)
[2017-05-11 02:50] LABS: Calcium 7.4 MG/DL (8.5-10.1); Osmolality,Calculated 278.4 MOS/KG (273-304); Potassium 3.9 MMOL/L (3.5-5.1)
[2017-05-11] MEDS: SODIUM CHLORIDE 0.9% 1,000 ML IV SCH ×2 (03:36→05:25)
[2017-05-11] MEDS: NICOTINE 21 MG/24 HR PATCH TRANSDERM SCH ×2 (08:24→08:26)
[2017-05-11] MEDS: PANTOPRAZOLE 40 MG TABLET PO SCH ×2 (08:24→21:16)
[2017-05-11] MEDS: FOLIC ACID 1 MG TABLET PO SCH (08:24)
[2017-05-11] MEDS: THIAMINE 100 MG TABLET PO SCH (08:24)
[2017-05-11 08:51] LABS: Hematocrit 24.7 VOL% (42.0-52.0); Hemoglobin 7.7 GM/DL (14.0-18.0)
[2017-05-11] MEDS: LORazepam 0.5 MG TABLET PO PRN ×2 (09:34→14:54)
--- NOTE | 2017-05-11 13:17 | Gastrointestinal Progress Note ---
Assessment and Plan - Time spent with patient Time spent with patient: Greater than 30 minutes (1) Lower GI bleed Status: Acute Current Visit: Yes (2) Other specified counseling Status: Acute Current Visit: Yes Gastroenterology - PN: Subj Interval history: PLEASE NOTE -- automatic citation of patient information is unavoidable in this electronic note. I have made a reasonable effort to review the information cited , but it is not a part of my evaluation, impression, or recommendation unless specifically discussed in the dictated text that follows. As well, voice recognition software was used in the creation of this clinical note. Reasonable effort was made to identify and correct gross errors. Despite proofreading, errors in district plant engineer may be present, including nonsense verbiage at times. If you encounter such an error, please contact me at for discussion and correction. -- Veronica Chief complaint: gastrointestinal bleeding Subjective: the patient is a 52-year-old male seen for follow-up of lower gastrointestinal bleeding. No acute events are noted overnight. One bowel movement is reported overnight without obvious blood. The patient underwent CT scan with G.I. bleeding protocol but no evidence of active hemorrhage. He received one unit of packed red blood cells with appropriate response. Blood counts are stable overnight. Medications: Tylenol, [place], folic acid, Ativan, Nicoderm, Zofran, Protonix, thiamine, Sonata Review of Symptoms: 12 point review of symptoms was negative except as noted above Physical examination: Vital Signs: Current vital signs reviewed. General Appearance: lying in bed. Comfortable. No apparent distress. Head: Normocephalic. Eyes: no scleral icterus. No scleral injection. No conjunctival pallor. Oral Cavity: Odor of breath was normal. No drooling was observed. Lips showed no abnormalities. Lungs: Respiration rhythm and depth was normal. Cardiovascular: Heart rate and rhythm were normal. Abdomen: abdomen was not distended. Abdominal auscultation revealed no abnormalities. Ascites was not discovered. Abdominal palpation revealed no tenderness and no hepatosplenomegaly. Musculoskeletal System: musculoskeletal system was grossly normal. Neurological: level of consciousness was normal. Speech was normal. No coordination/cerebellum abnormalities were noted. Skin: Gen. appearance was normal. Color and pigmentation were normal. No skin lesions were appreciated. Laboratory: hemoglobin 7.5, hematocrit 24.7 Radiology: CT G.I. bleeding protocol, May 10, 2017 -- no definite evidence of acute active hemorrhage; mucosal thickening and parent colonic fan stranding in the right of the abdomen consistent with infectious/inflammatory colitis; minimal diverticular disease Impressions: 1. Lower gastrointestinal bleeding -- no clear evidence of ongoing bleeding on CT. I recommend continued volume management, monitoring of blood counts, and transfusion as indicated. Urgent colonoscopy is not indicated at this point. Prior colonoscopy was accomplished at [place] and we should continue to seek this record for documentation sake. 2. Other specified counseling -- Patient seen for greater than 30 minutes. Greater than 50% of this time was spent counseling regarding differential diagnosis, likely diagnosis,, diagnostic and therapeutic options, risks, benefits, and alternatives to procedures and medications, informed consent, and plan of care generally. Patient has expressed understanding and wishes to proceed. Recommendations: -- continued volume management -- monitor blood counts with transfusion as indicated -- continue to encourage alcohol abstinence -- contact [place] for record of prior colonoscopy -- we will continue to follow with you Exam (Progress Note) - Constitutional Vitals: Period Temp Pulse Resp BP Sys/Avila Pulse Ox Last 24 Hr 97.7 F-99.6 F 70-89 16-18 92-114/51-77 98-100 Results - Labs CBC & BMP: 05/11/17 08:40 05/11/17 02:23
[2017-05-11] MEDS ORDERED: SODIUM CHLORIDE 0.9% 250 ML IV PRN (14:25)
--- NOTE | 2017-05-11 14:28 | Hospitalist Progress Note ---
Assessment and Plan (1) Lower GI bleed Status: Acute Assessment and plan: History portal gastropathy and esophageal varices. Patient continues to lose blood. GI following Current Visit: Yes (2) Acute blood loss anemia Status: Acute Assessment and plan: give another 2 units of PRBC Current Visit: No (3) Nicotine abuse Status: Acute Assessment and plan: Nicotine patch Current Visit: No (4) Portal hypertensive gastropathy Status: Acute Assessment and plan: cont protonix bid Current Visit: No (5) Alcoholic cirrhosis Status: Acute Assessment and plan: elevated ammonia level, cont thiamine and folate and started lactulose Current Visit: No Hospitalist: Subjective Interval history: Patient was given 2 units packed red blood cells yesterday. He is hard to crossmatched due to multiple antibodies. Patient has dropped down to 7.7 despite the 2 units of blood. All patient wants to talk about his Ativan. Patient is a drug dependent and an alcoholic but shows no signs of withdrawal. not getting out of bed. Exam - Constitutional Vitals: Period Temp Pulse Resp BP Sys/Avila Pulse Ox Last 24 Hr 97.7 F-99.6 F 70-89 16-18 92-114/51-77 98-100 Exam: Heart Rate-[RRR] Lungs-[CTAB] GI-[+bs soft, NT] Ext-[no edema] Neuro [Motor 5/5], [alert and oriented times 2, no signs of withdrawal] psych [depressed mood and flat affect] General [no acute distress] Results - Labs CBC & BMP: 05/11/17 08:40 05/11/17 02:23 Lab Results: I have reviewed the past 24 hour labs
[2017-05-11] MEDS: ONDANSETRON 4 MG/2 ML VIAL IV PRN (15:03)
[2017-05-11] MEDS: LACTULOSE 20 GM/30 ML UDCUP PO SCH ×2 (16:17→21:16)
[2017-05-11] MEDS: ZALEPLON 5 MG CAPSULE PO PRN (21:16)
[2017-05-11 22:21] LABS: Hematocrit 27.4 VOL% (42.0-52.0); Hemoglobin 8.8 GM/DL (14.0-18.0)
[2017-05-12] MEDS: LORazepam 0.5 MG TABLET PO PRN ×3 (04:58→16:40)
[2017-05-12] MEDS: LACTULOSE 20 GM/30 ML UDCUP PO SCH ×2 (09:17→20:41)
[2017-05-12] MEDS: PANTOPRAZOLE 40 MG TABLET PO SCH ×2 (09:17→20:12)
[2017-05-12] MEDS: THIAMINE 100 MG TABLET PO SCH (09:17)
[2017-05-12] MEDS: NICOTINE 21 MG/24 HR PATCH TRANSDERM SCH (09:17)
[2017-05-12] MEDS: FOLIC ACID 1 MG TABLET PO SCH (09:17)
--- NOTE | 2017-05-12 11:06 | Gastrointestinal Progress Note ---
Assessment and Plan (1) Lower GI bleed Status: Acute Current Visit: Yes (2) Other specified counseling Status: Acute Current Visit: Yes Gastroenterology - PN: Subj Interval history: PLEASE NOTE -- automatic citation of patient information is unavoidable in this electronic note. I have made a reasonable effort to review the information cited , but it is not a part of my evaluation, impression, or recommendation unless specifically discussed in the dictated text that follows. As well, voice recognition software was used in the creation of this clinical note. Reasonable effort was made to identify and correct gross errors. Despite proofreading, errors in director of accounts payable may be present, including nonsense verbiage at times. If you encounter such an error, please contact me at for discussion and correction. -- Veronica Chief complaint: gastrointestinal bleeding Subjective: the patient is a 52-year-old male seen for follow-up of lower gastrointestinal bleeding. One bowel movement is reported overnight with no evidence of blood. He received two units of packed red blood cells. Blood counts are stable this morning. Medications: Tylenol, [place], folic acid, Ativan, Nicoderm, Zofran, Protonix, thiamine, Sonata Review of Symptoms: 12 point review of symptoms was negative except as noted above Physical examination: Vital Signs: Current vital signs reviewed. General Appearance: lying in bed. Comfortable. No apparent distress. Head: Normocephalic. Eyes: no scleral icterus. No scleral injection. No conjunctival pallor. Oral Cavity: Odor of breath was normal. No drooling was observed. Lips showed no abnormalities. Lungs: Respiration rhythm and depth was normal. Cardiovascular: Heart rate and rhythm were normal. Abdomen: abdomen was not distended. Abdominal auscultation revealed no abnormalities. Ascites was not discovered. Abdominal palpation revealed no tenderness and no hepatosplenomegaly. Musculoskeletal System: musculoskeletal system was grossly normal. Neurological: level of consciousness was normal. Speech was normal. No coordination/cerebellum abnormalities were noted. Skin: Gen. appearance was normal. Color and pigmentation were normal. No skin lesions were appreciated. Laboratory: hemoglobin 7.7 --> transfusion --> 8.8 Radiology: reviewed Impressions: 1. Lower gastrointestinal bleeding -- no evidence of active bleeding at present. I recommend continued volume management, monitoring of blood counts, and further transfusion as indicated. 2. Other specified counseling -- Patient seen for less than 30 minutes. Greater than 50% of this time was spent counseling regarding differential diagnosis, likely diagnosis,, diagnostic and therapeutic options, risks, benefits, and alternatives to procedures and medications, informed consent, and plan of care generally. Patient has expressed understanding and wishes to proceed. Recommendations: -- continued volume management -- monitor blood counts with transfusion as indicated -- continue to encourage alcohol abstinence -- contact [place] for record of prior colonoscopy -- we will continue to follow with you. Dr. Dee will resume G.I. care for this patient tomorrow. Exam (Progress Note) - Constitutional Vitals: Period Temp Pulse Resp BP Sys/Avila Pulse Ox Last 24 Hr 97.5 F-98.6 F 68-78 16-18 98-116/60-74 97-100 Results - Labs CBC & BMP: 05/12/17 03:02 05/11/17 02:23
--- NOTE | 2017-05-12 14:28 | Hospitalist Progress Note ---
Assessment and Plan (1) Lower GI bleed Status: Acute Assessment and plan: History portal gastropathy and esophageal varices. Hemoglobin stable and CT shows no evidence of active bleed. Discharge home tomorrow Current Visit: Yes (2) Acute blood loss anemia Status: Acute Assessment and plan: Hemoglobin stable Current Visit: No (3) Nicotine abuse Status: Acute Assessment and plan: Nicotine patch Current Visit: No (4) Portal hypertensive gastropathy Status: Acute Assessment and plan: cont protonix bid Current Visit: No (5) Alcoholic cirrhosis Status: Acute Assessment and plan: elevated ammonia level of 42, cont lactulose, thiamine and folate Current Visit: No Hospitalist: Subjective Interval history: Patient's hemoglobin is stable today. His color is much better today. He has a lot more energy. Plan on discharging him home in the morning. Exam - Constitutional Vitals: Period Temp Pulse Resp BP Sys/Avila Pulse Ox Last 24 Hr 97.5 F-98.6 F 68-78 16-19 98-116/60-76 97-100 Exam: Heart Rate-[RRR] Lungs-[CTAB] GI-[+bs soft, NT] Ext-[no edema] Neuro [Motor 5/5], [alert and oriented times 3] psych [normal mood and affect] General [no acute distress] Results - Labs CBC & BMP: 05/12/17 03:02 05/11/17 02:23 Lab Results: I have reviewed the past 24 hour labs - Diagnostic Findings Procedure: CT: report reviewed by me (GI bleeding scan no active hemorrhage., Mild diverticular disease)
[2017-05-12] MEDS: ONDANSETRON 4 MG/2 ML VIAL IV PRN (20:10)
[2017-05-12] MEDS: ZALEPLON 5 MG CAPSULE PO PRN (20:12)
[2017-05-13] MEDS: LORazepam 0.5 MG TABLET PO PRN ×2 (02:43→08:11)
[2017-05-13] MEDS: THIAMINE 100 MG TABLET PO SCH (08:11)
[2017-05-13] MEDS: PANTOPRAZOLE 40 MG TABLET PO SCH (08:11)
[2017-05-13] MEDS: LACTULOSE 20 GM/30 ML UDCUP PO SCH (08:11)
[2017-05-13] MEDS: NICOTINE 21 MG/24 HR PATCH TRANSDERM SCH (08:11)
[2017-05-13] MEDS: FOLIC ACID 1 MG TABLET PO SCH (08:11)
--- NOTE | 2017-05-13 08:56 | Gastrointestinal Progress Note ---
<FabianocemJen Tg - Last Filed: 05/13/17 08:54> Assessment and Plan (1) Lower GI bleed Status: Acute Assessment and plan: 05/13-no abdominal pain, nausea vomiting. One small melena stool yesterday. Hemoglobin is holding stable at 8.9. Total of 4 units of packed red blood cells this admission. Patient is for tentative discharge home today. Plan an addendum to follow by Dr. Dee. 05/10-2 day history of lower abdominal pain with onset of bright red blood and dark blood mixed in with stool. Reports of nausea without vomiting. History of GI bleed in the past with recent EGD with findings noted below. Reported recent colonoscopy without records to verify findings. Hemoglobin of 7.9 with transfusion of 7 units of packed red blood cells over the last 2 months. Plan an addendum to follow by Dr. Dee. Gastroenterology - PN: Subj Interval history: CC: GI bleed Patient is seen awake and alert ambulating in hallways. States he had an uneventful weekend. Patient reports that he did have some dark stool on yesterday however no further bright red bleeding since admission. His GI bleeding scan was noted on Saturday to be negative with findings of diverticular disease. He denies any abdominal pain, nausea or vomiting. States his stomach became a little upset last night after eating but states the food was a little too rich in his stomach is not ready for this at this time. His hemoglobin is holding stable at 8.9 and he is received a total of 4 units of packed red blood cells during this admission. He states that he is to be discharged home today and he is already called a ride to pick him up from [place]. Patient instructed that if rebleeding occurs he needs to return back to the ER immediately due to the difficulty we have with locating blood products to transfuse him with. Patient verbalizes understanding of this. Abdomen is soft , nontender. ROS: Denies shortness of breath or chest pain Exam (Progress Note) - Constitutional Vitals: Period Temp Pulse Resp BP Sys/Avila Pulse Ox Last 24 Hr 97.2 F-99.3 F 64-77 16-20 111-121/69-76 97-100 General appearance: normal weight, no acute distress - Head Head exam: Present: normal inspection, normocephalic - Eye Eye exam: Present: other (Lids and conjunctive are unremarkable). Absent: scleral icterus - ENT ENT exam: Present: normal exam, normal oropharynx - Neck Neck exam: Present: normal inspection - Respiratory Respiratory exam: Present: clear to auscultation bilaterally. Absent: rales, rhonchi, wheezes - Cardiovascular Cardiovascular exam: Present: regular rate and rhythm. Absent: diastolic murmur , JVD, systolic murmur - GI/Abdominal GI/Abdominal exam: Present: normal bowel sounds, soft. Absent: ascites, distended, mass, organomegaly, tenderness - Extremities Exam Extremities exam: Present: normal inspection, full ROM - Back Exam Back exam: Present: normal inspection - Neurological Exam Neurological exam: Present: alert, oriented X3 - Psychiatric Psychiatric exam: Present: normal affect, normal mood - Skin Skin exam: Present: normal color, warm, dry Results - Labs CBC & BMP: 05/13/17 05:07 05/11/17 02:23 Lab Results: I have reviewed the past 24 hour labs <Kenji Dee - Last Filed: 05/13/17 18:13> Exam (Progress Note) - Constitutional Vitals: Period Temp Pulse Resp BP Sys/Avila Pulse Ox Last 24 Hr 97.9 F-99.3 F 64-103 16-18 103-121/69-74 97-100 Results - Labs CBC & BMP: 05/13/17 05:07 05/11/17 02:23
[2017-05-13 09:26] VITALS: BP 103/72
--- NOTE | 2017-05-13 09:45 | Discharge Summary ---
<Kate Mccormack - Last Filed: 05/13/17 09:25> Hospital Course - Hospital Course Hospital Course: This is a pleasant very 52-year-old male that presented to [facility] as a direct admit from [facility] for further evaluation of lower gastrointestinal bleed. The patient has a very extensive medical history significant for: Abdominal aortic aneurysm, hypertension, depression, anxiety, obstructive sleep apnea, previous gastrointestinal bleeds, alcoholic liver disease and alcohol addiction. The patient has a surgical history significant for hernia repair. The patient reported his normal state of health until 2 days prior to the day of presentation. He reported a gradual onset of abdominal pain and lower GI bleeding. He reported that when he started to experience these episodes that his stool was dark in color with a small amount of bright red bleeding. The day prior to presentation he had presented to the ED at [facility], he was evaluated and discharged home. He reports that upon returning to home that the abdominal pain became worse and he re-presented to the ED at [facility] for a second time. At that time, he was subsequently admitted overnight with plans for transfer to [facility] on the day of presentation. The patient presented as a direct admission. At the time of admission, the patient verbalize complaints of abdominal pain. Upon review of the previous medical records, it was noted that the patient had a previous admission in an March and April of this year for symptoms similar in nature. During the previous admission, the patient was evaluated by GI, however did not receive endoscopic evaluation. During that admission, the patient was transfused,observed, and subsequently discharged home. During the March admission, he was told during that admission that he should stop consuming alcohol; however the patient has continued to drink. He reported his last alcohol intake 2 days prior to presentation. At the time of admission his hemoglobin and hematocrit were noted at 7.9 and 26.2 The patient was subsequently transfused blood products, alcohol withdrawal precautions were initiated, and a gastroenterology consultation was requested. Serial hemoglobin and hematocrits were obtained, which were relatively stable. Today, his hemoglobin is noted at 8.9. We feel that he is indeed appropriate for discharge to follow-up with his primary care physician and gastroenterology as indicated. I have spoke with the patient in great detail regarding the need to refrain from alcohol consumption. The patient verbalizes an understanding of the need to refrain from alcohol consumption however verbalizes that he will attempt to stop eventually. Patient is hemodynamically and clinically stable. He is safe for discharge. His h/h are stable. He does not want to go to alcohol substance abuse program for treatment. Specialty Discharge - Follow Up or Referrals Discharge Plan - Discharge Medications New Folic Acid Tab 1 mg PO DAILY tablet Thiamine Tab [Vitamin B1 Tab] 100 mg PO DAILY tablet Lactulose Liquid [Chronulac] 20 gm PO BID Continue Pantoprazole Tab [Protonix Tab] 40 mg PO BID #60 tablet - Follow Up or Referral - Forms/Instructions Instructions: How to Stop Smoking (DC), Gastrointestinal Bleeding (DC), Abuse of Alcohol (DC) Exam - Constitutional Vitals: Period Temp Pulse Resp BP Sys/Avila Pulse Ox Last 24 Hr 97.2 F-99.3 F 64-103 16-20 103-121/69-76 97-100 Discharge Results Procedures and tests throughout hospitalization: Pending Orders 05/10/17 Occult Blood, Stool Stat 05/11/17 Red Blood Cells Leuko Red Stat Labs on day of discharge: Labs from last 24 hours 05/13/17 05/11/17 05:07 Unknown Hgb 8.9 L Crossmatch See Detail DS: Provider Date of admission: 05/10/17 10:25 Primary care physician: . No PCP Attending physician on admission: Marge Pickens MD Consults: 05/10/17 10:49 Consult to Physician [CONS] Routine Comment: gi bleed Consulting Provider: Kenji Dee Discharging clinician: Kate Mccormack CNP <Haroldo Funk - Last Filed: 05/13/17 13:03> Diagnosis - Discharge Diagnosis (1) Lower GI bleed Status: Acute (2) Acute blood loss anemia Status: Acute Exam - Constitutional General appearance: no acute distress - Eye Eye exam: Present: EOMI Pupils: Present: IDA - ENT ENT exam: Present: normal exam - Cardiovascular Cardiovascular exam: Present: regular rate and rhythm - GI/Abdominal GI/Abdominal exam: Present: normal bowel sounds - Neurological Exam Neurological exam: Present: oriented X3 - Psychiatric Psychiatric exam: Present: normal affect, normal mood DS: Provider Primary care physician: . No PCP unknown
== END 2017-05-13 13:28 | disposition home or self-care (01) | DRG 378 ==
LOC: N.5E → OBSVTOIN 10:25 → SUATTDRO 10:25
PROVIDERS: ADMIT Internal Medicine; ATTEND Internal Medicine

== ENCOUNTER 2020-01-13 23:20 | Inpatient (IN) ==
[2020-01-14] MEDS ORDERED: ONDANSETRON 4 MG/2 ML VIAL IV PRN (01:16)
[2020-01-14] MEDS ORDERED: SODIUM CHLORIDE 0.9% 1,000 ML IV PRN ×2 (01:34→01:50)
[2020-01-14] MEDS ORDERED: PHYTONADIONE 10 MG/1 ML AMP SUBCUT ONE (02:16)
[2020-01-14] MEDS: SODIUM CHLORIDE 0.9% 1,000 ML IV SCH ×3 (02:20→19:40)
[2020-01-14] MEDS: OCTREOTIDE 500 MCG in SODIUM CHLORIDE 0.9% 100 ML IV SCH ×3 (02:20→23:01)
[2020-01-14 02:22] LABS: Albumin 2.2 G/DL (3.4-5.0); Bilirubin,Total 1.6 MG/DL (0.2-1.0); Calcium 7.1 MG/DL (8.5-10.1); Osmolality,Calculated 337.8 MOS/KG (273-304); Total Protein 5.3 G/DL (6.4-8.3)
[2020-01-14] MEDS ORDERED: CALCIUM GLUCONATE 1,000 MG in SODIUM CHLORIDE 0.9% 100 ML IV ONE (03:07)
[2020-01-14 04:07] LABS: INR 1.6; PT Patient Result 17.6 SECS (9.6-12.2)
[2020-01-14 06:06] LABS: Hematocrit 18.5 VOL% (42.0-52.0); Immature Granulocytes % 0.9 %; Immature Granulocytes Absolute 0.04 #; Lymphocytes # 0.5 10*3/uL (1.4-4.0); Lymphocytes % 12.2 % (21.2-54.2); Mean Corpuscular HGB Conc 31.4 GM/DL (32-36); Mean Corpuscular Volume 84.1 FL (87-102); Monocytes % 5.4 % (1.7-12.7); Neutrophils % 81.5 % (38.7-73.9); Red Cell Distribution Width 19.1 % (9.3-17.3); White Blood Count 4.3 T/CUMM (4-12)
[2020-01-14 06:10] LABS: Hemoglobin 5.8 GM/DL (14.0-18.0); Platelet Count 24 T/CUMM (130-400)
[2020-01-14] MEDS: LORazepam 2 MG/1 ML VIAL IV PRN ×4 (06:10→20:35)
[2020-01-14 06:47] LABS: Lymphocytes 10 % (20-55); Segmented Neutrophils 86 % (50-85)
[2020-01-14 06:48] LABS: Hypochromasia 2+; Platelet Estimate Decreased; Target Cells Few; Total Cells Counted 100
[2020-01-14] MEDS: THIAMINE 200 MG/2 ML VIAL IV SCH (09:04)
[2020-01-14] MEDS: PANTOPRAZOLE 40 MG VIAL IV SCH ×2 (09:09→20:37)
[2020-01-14] MEDS: MULTIVITAMIN (CENTRUM) TABLET PO SCH (11:29)
[2020-01-14] MEDS: FOLIC ACID 1 MG TABLET PO SCH (11:29)
[2020-01-14 11:58] LABS: Hematocrit 15.9 VOL% (42.0-52.0); Hemoglobin 4.9 GM/DL (14.0-18.0)
[2020-01-14] MEDS: MORPHINE 4 MG/1 ML VIAL IV PRN ×2 (13:42→19:14)
[2020-01-14 18:02] LABS: Hematocrit 15.7 VOL% (42.0-52.0)
[2020-01-14 18:06] LABS: Hemoglobin 4.8 GM/DL (14.0-18.0)
[2020-01-15 00:31] LABS: Hematocrit 14.9 VOL% (42.0-52.0); Hemoglobin 4.5 GM/DL (14.0-18.0)
[2020-01-15] MEDS: MORPHINE 4 MG/1 ML VIAL IV PRN (00:34)
[2020-01-15] MEDS: LORazepam 2 MG/1 ML VIAL IV PRN ×8 (01:50→22:32)
[2020-01-15] MEDS: SODIUM CHLORIDE 0.9% 1,000 ML IV SCH ×3 (03:41→13:47)
[2020-01-15 04:28] LABS: Immature Granulocytes % 0.4 %; Immature Granulocytes Absolute 0.01 #; Lymphocytes # 0.8 10*3/uL (1.4-4.0); Lymphocytes % 28.4 % (21.2-54.2); Mean Corpuscular HGB Conc 31.1 GM/DL (32-36); Mean Corpuscular Volume 85.5 FL (87-102); Monocytes % 9.1 % (1.7-12.7); Neutrophils % 62.1 % (38.7-73.9); Red Blood Count 1.73 MC/CUMM (3.8-5.5); Red Cell Distribution Width 19.9 % (9.3-17.3); White Blood Count 2.9 T/CUMM (4-12)
[2020-01-15 04:32] LABS: Hemoglobin 4.6 GM/DL (14.0-18.0)
[2020-01-15 04:33] LABS: Hematocrit 14.8 VOL% (42.0-52.0); Platelet Count 17 T/CUMM (130-400)
[2020-01-15 04:45] LABS: Albumin 2.1 G/DL (3.4-5.0); Bilirubin,Total 1.2 MG/DL (0.2-1.0); Calcium 7.1 MG/DL (8.5-10.1); Osmolality,Calculated 287.7 MOS/KG (273-304)
[2020-01-15 04:50] LABS: Eosinophils 3 % (0-10); Hypochromasia 2+; Lymphocytes 24 % (20-55); Microcytosis 1+; Segmented Neutrophils 64 % (50-85); Total Cells Counted 100
[2020-01-15 04:51] LABS: Polychromasia Slight
[2020-01-15 04:53] LABS: Ovalocytes Slight; Platelet Estimate Decreased
[2020-01-15] MEDS ORDERED: LACTATED RINGERS 1,000 ML IV SCH (08:00)
[2020-01-15] MEDS ORDERED: PHYTONADIONE 10 MG/1 ML AMP SUBCUT SCH (09:00)
[2020-01-15] MEDS: PANTOPRAZOLE 40 MG VIAL IV SCH ×2 (09:49→20:54)
[2020-01-15] MEDS: THIAMINE 200 MG/2 ML VIAL IV SCH (09:50)
[2020-01-15] MEDS: MULTIVITAMIN (CENTRUM) TABLET PO SCH (09:58)
[2020-01-15] MEDS: FOLIC ACID 1 MG TABLET PO SCH (09:58)
[2020-01-15] MEDS: OCTREOTIDE 500 MCG in SODIUM CHLORIDE 0.9% 100 ML IV SCH ×2 (09:59→20:38)
[2020-01-15] MEDS ORDERED: LIDOCAINE 2% 5 ML VIAL ONE (12:30)
[2020-01-15] MEDS ORDERED: SUCCINYLCHOLINE 200 MG/10 ML VIAL ONE (12:30)
[2020-01-15] MEDS ORDERED: MIDAZOLAM 2 MG/2 ML VIAL ONE (12:30)
[2020-01-15] MEDS ORDERED: ETOMIDATE 40 MG/20 ML VIAL IV ONE (12:30)
[2020-01-15] MEDS ORDERED: SEVOFLURANE 1 UNIT/15 MINUTE INH ONE (12:30)
[2020-01-15] MEDS ORDERED: SODIUM CHLORIDE 0.9% 1,000 ML IV ONE (12:31)
[2020-01-15] MEDS ORDERED: SODIUM CHLORIDE 0.9% 1,000 ML IV PRN (13:41)
[2020-01-15] MEDS: LACTULOSE 20 GM/30 ML UDCUP PO SCH ×3 (14:01→20:54)
[2020-01-15 14:30] LABS: Basophils % 0.4 % (0.0-0.8); Lymphocytes # 0.5 10*3/uL (1.4-4.0); Lymphocytes % 22.5 % (21.2-54.2); Mean Corpuscular HGB Conc 30.1 GM/DL (32-36); Mean Corpuscular Volume 86.1 FL (87-102); Mean Platelet Volume 10.2 FL (9.6-12.0); Monocytes % 8.3 % (1.7-12.7); Neutrophils % 68.8 % (38.7-73.9); Red Blood Count 1.66 MC/CUMM (3.8-5.5); Red Cell Distribution Width 19.5 % (9.3-17.3); White Blood Count 2.4 T/CUMM (4-12)
[2020-01-15 14:37] LABS: Hematocrit 14.3 VOL% (42.0-52.0); Hemoglobin 4.3 GM/DL (14.0-18.0); Platelet Count 35 T/CUMM (130-400)
[2020-01-15 14:49] LABS: Partial Thromboplastin Time 25.9 SECS (20.8-36.0)
[2020-01-15] MEDS ORDERED: LACTULOSE 20 GM/30 ML UDCUP PO SCH (15:00)
[2020-01-15 15:04] LABS: Hypochromasia 2+; Lymphocytes 23 % (20-55); Microcytosis 2+; Ovalocytes Slight; Platelet Estimate Decreased; Segmented Neutrophils 70 % (50-85); Target Cells Slight; Tear Drop Cells Few; Total Cells Counted 100
[2020-01-15] MEDS: chlordiazePOXIDE 10 MG CAPSULE PO SCH ×2 (15:17→20:53)
[2020-01-15] MEDS ORDERED: LORazepam 2 MG/1 ML VIAL ONE ×3 (19:36→22:30)
[2020-01-15] MEDS: NICOTINE 21 MG/24 HR PATCH TRANSDERM SCH (21:23)
[2020-01-16 05:27] LABS: Basophils % 0.4 % (0.0-0.8); Hematocrit 20.2 VOL% (42.0-52.0); Immature Granulocytes % 0.4 %; Immature Granulocytes Absolute 0.01 #; Lymphocytes # 0.8 10*3/uL (1.4-4.0); Lymphocytes % 27.7 % (21.2-54.2); Mean Corpuscular HGB Conc 30.7 GM/DL (32-36); Mean Corpuscular Volume 80.8 FL (87-102); Monocytes % 9.6 % (1.7-12.7); Neutrophils % 61.9 % (38.7-73.9); Red Cell Distribution Width 26.4 % (9.3-17.3); White Blood Count 2.8 T/CUMM (4-12)
[2020-01-16 05:29] LABS: Hemoglobin 6.2 GM/DL (14.0-18.0)
[2020-01-16 05:30] LABS: Platelet Count 33 T/CUMM (130-400)
[2020-01-16 05:43] LABS: Albumin 2.5 G/DL (3.4-5.0); Calcium 7.8 MG/DL (8.5-10.1); Total Protein 5.9 G/DL (6.4-8.3)
[2020-01-16] MEDS ORDERED: SODIUM CHLORIDE 0.9% 1,000 ML IV PRN ×2 (05:47→08:27)
[2020-01-16 06:39] LABS: Anisocytosis 2+; Hypochromasia 2+; Macrocytosis 1+; Microcytosis 2+; Ovalocytes 2+; Platelet Estimate Decreased; Poikilocytosis 2+; Target Cells 1+
[2020-01-16] MEDS: LORazepam 2 MG/1 ML VIAL IV PRN ×5 (06:59→23:24)
[2020-01-16] MEDS ORDERED: POTASSIUM CHLORIDE RIDER 10 MEQ in PREMIX 1 EACH IV PRN (08:24)
[2020-01-16] MEDS: chlordiazePOXIDE 10 MG CAPSULE PO SCH (08:31)
[2020-01-16] MEDS: PANTOPRAZOLE 40 MG VIAL IV SCH ×2 (09:04→20:17)
[2020-01-16] MEDS: THIAMINE 200 MG/2 ML VIAL IV SCH (09:04)
[2020-01-16] MEDS: LACTULOSE 20 GM/30 ML UDCUP PO SCH ×3 (09:04→20:18)
[2020-01-16] MEDS: MULTIVITAMIN (CENTRUM) TABLET PO SCH (09:04)
[2020-01-16] MEDS: FOLIC ACID 1 MG TABLET PO SCH (09:04)
[2020-01-16] MEDS: chlordiazePOXIDE 25 MG CAPSULE PO SCH ×3 (09:16→20:18)
[2020-01-16] MEDS: NICOTINE 21 MG/24 HR PATCH TRANSDERM SCH (10:03)
[2020-01-16] MEDS: POTASSIUM CHLORIDE 20 MEQ TABLET PO PRN ×4 (10:15→16:31)
[2020-01-16] MEDS: PROPRANOLOL 10 MG TABLET PO SCH ×2 (14:47→20:18)
[2020-01-16] MEDS ORDERED: LORazepam 2 MG/1 ML VIAL ONE ×2 (21:42→23:12)
[2020-01-17] MEDS ORDERED: LORazepam 2 MG/1 ML VIAL ONE ×2 (00:46→02:35)
[2020-01-17] MEDS: LORazepam 2 MG/1 ML VIAL IV PRN ×5 (00:52→11:30)
[2020-01-17 06:08] LABS: Albumin 2.8 G/DL (3.4-5.0); Bilirubin,Total 2.3 MG/DL (0.2-1.0); Calcium 8.3 MG/DL (8.5-10.1); Osmolality,Calculated 279.1 MOS/KG (273-304); Total Protein 6.5 G/DL (6.4-8.3)
[2020-01-17 06:16] LABS: Basophils % 0.4 % (0.0-0.8); Eosinophils % 0.2 % (0.00-10.9); Hematocrit 29.6 VOL% (42.0-52.0); Hemoglobin 9.3 GM/DL (14.0-18.0); Immature Granulocytes % 0.2 %; Immature Granulocytes Absolute 0.01 #; Lymphocytes % 20.7 % (21.2-54.2); Mean Corpuscular HGB Conc 31.4 GM/DL (32-36); Mean Corpuscular Volume 83.1 FL (87-102); Neutrophils % 67.5 % (38.7-73.9); Platelet Count 40 T/CUMM (130-400); Red Blood Count 3.56 MC/CUMM (3.8-5.5); Red Cell Distribution Width 22.8 % (9.3-17.3); White Blood Count 4.9 T/CUMM (4-12)
[2020-01-17] MEDS: POTASSIUM CHLORIDE 20 MEQ TABLET PO PRN (06:38)
[2020-01-17 06:56] LABS: Anisocytosis 1+; Hypochromasia 1+; Ovalocytes 1+; Platelet Estimate Decreased
[2020-01-17] MEDS: NICOTINE 21 MG/24 HR PATCH TRANSDERM SCH (08:35)
[2020-01-17] MEDS: PANTOPRAZOLE 40 MG VIAL IV SCH ×2 (08:36→21:43)
[2020-01-17] MEDS: THIAMINE 200 MG/2 ML VIAL IV SCH (08:37)
[2020-01-17] MEDS: POTASSIUM CHLORIDE RIDER 20 MEQ in PREMIX 1 EACH IV PRN ×2 (08:41→12:06)
[2020-01-17] MEDS ORDERED: chlordiazePOXIDE 25 MG CAPSULE PO SCH (09:00)
[2020-01-17] MEDS ORDERED: DEXMEDETOMIDINE 200 MCG in SODIUM CHLORIDE 0.9% 48 ML IV PRN (09:41)
[2020-01-17] MEDS: MULTIVITAMIN (CENTRUM) TABLET PO SCH (11:26)
[2020-01-17] MEDS: FOLIC ACID 1 MG TABLET PO SCH (11:27)
[2020-01-17] MEDS: PROPRANOLOL 10 MG TABLET PO SCH ×3 (11:27→21:19)
[2020-01-17 12:19] LABS: Apearance,Urine CLEAR (Clear); Bilirubin,Urine Negative (Negative); Blood, Urine Negative (Negative); Glucose,Urine (UA) Negative (Negative); Ketones,Urine 5 mg/dL (Negative); Mucus,Urine Occasional /LPF (Occasional); Nitrite,Urine Negative (Negative); Protein,Urine Negative; RBC,Urine <1 /HPF (0-4); Squamous Epithelial Cell,Urine Occasional /HPF (0-10); Urine Color Yellow (Yellow); Urine Specific Gravity 1.013 (1.001-1.035); Urine Urobilinogen < 2.0 EU/DL (0.2-1.0); WBC,Urine 1 /HPF (0-6)
[2020-01-17] MEDS ORDERED: DEXMEDETOMIDINE 400 MCG in SODIUM CHLORIDE 0.9% 96 ML IV PRN (12:37)
[2020-01-17] MEDS: LACTULOSE 20 GM/30 ML UDCUP PO SCH ×2 (15:06→21:53)
[2020-01-17] MEDS: chlordiazePOXIDE 25 MG CAPSULE PO SCH ×2 (16:11→22:07)
[2020-01-18] MEDS: LORazepam 2 MG/1 ML VIAL IV PRN (00:34)
[2020-01-18 04:35] LABS: Red Blood Count 3.73 MC/CUMM (3.8-5.5); White Blood Count 7.6 T/CUMM (4-12)
[2020-01-18 04:36] LABS: Basophils % 0.5 % (0.0-0.8); Hematocrit 31.3 VOL% (42.0-52.0); Hemoglobin 9.7 GM/DL (14.0-18.0); Immature Granulocytes % 0.3 %; Immature Granulocytes Absolute 0.02 #; Lymphocytes # 1.2 10*3/uL (1.4-4.0); Lymphocytes % 15.4 % (21.2-54.2); Mean Corpuscular Volume 83.9 FL (87-102); Monocytes % 9.2 % (1.7-12.7); Neutrophils % 74.6 % (38.7-73.9); Platelet Count 46 T/CUMM (130-400); Red Cell Distribution Width 23.7 % (9.3-17.3)
[2020-01-18 04:55] LABS: Albumin 2.7 G/DL (3.4-5.0); Bilirubin,Total 2.3 MG/DL (0.2-1.0); Calcium 7.9 MG/DL (8.5-10.1); Osmolality,Calculated 275.4 MOS/KG (273-304); Total Protein 6.6 G/DL (6.4-8.3)
[2020-01-18 04:56] LABS: Band Neutrophils 1 % (0-10); Eosinophils 2 % (0-10); Hypochromasia 1+; Lymphocytes 10 % (20-55); Platelet Estimate Decreased; Segmented Neutrophils 80 % (50-85); Total Cells Counted 100
[2020-01-18 04:57] LABS: Ovalocytes Slight
[2020-01-18] MEDS: POTASSIUM CHLORIDE 20 MEQ TABLET PO PRN ×2 (06:40→08:40)
[2020-01-18] MEDS: LACTULOSE 20 GM/30 ML UDCUP PO SCH ×3 (08:40→20:51)
[2020-01-18] MEDS: FOLIC ACID 1 MG TABLET PO SCH (08:41)
[2020-01-18] MEDS: PROPRANOLOL 10 MG TABLET PO SCH ×3 (08:41→23:05)
[2020-01-18] MEDS: NICOTINE 21 MG/24 HR PATCH TRANSDERM SCH (08:41)
[2020-01-18] MEDS: MULTIVITAMIN (CENTRUM) TABLET PO SCH (08:41)
[2020-01-18] MEDS: chlordiazePOXIDE 25 MG CAPSULE PO SCH ×3 (08:41→20:53)
[2020-01-18] MEDS: PANTOPRAZOLE 40 MG VIAL IV SCH ×2 (08:42→20:50)
[2020-01-18] MEDS: THIAMINE 200 MG/2 ML VIAL IV SCH (08:42)
[2020-01-19 04:48] LABS: Basophils % 0.8 % (0.0-0.8); Eosinophils % 0.2 % (0.00-10.9); Hematocrit 30.6 VOL% (42.0-52.0); Hemoglobin 9.5 GM/DL (14.0-18.0); Immature Granulocytes % 0.2 %; Immature Granulocytes Absolute 0.01 #; Lymphocytes # 1.5 10*3/uL (1.4-4.0); Lymphocytes % 27.6 % (21.2-54.2); Mean Corpuscular Volume 84.1 FL (87-102); Neutrophils % 59.2 % (38.7-73.9); Platelet Count 60 T/CUMM (130-400); Red Blood Count 3.64 MC/CUMM (3.8-5.5); Red Cell Distribution Width 24.5 % (9.3-17.3); White Blood Count 5.3 T/CUMM (4-12)
[2020-01-19 05:09] LABS: Albumin 2.6 G/DL (3.4-5.0); Bilirubin,Total 1.5 MG/DL (0.2-1.0); Osmolality,Calculated 272.7 MOS/KG (273-304); Total Protein 6.4 G/DL (6.4-8.3)
[2020-01-19 05:15] LABS: Hypochromasia 1+
[2020-01-19 05:16] LABS: Anisocytosis 1+; Microcytosis 2+; Ovalocytes Slight; Platelet Estimate Decreased
[2020-01-19 05:17] LABS: Polychromasia Slight
[2020-01-19] MEDS: POTASSIUM CHLORIDE 20 MEQ TABLET PO PRN (06:48)
[2020-01-19] MEDS: PANTOPRAZOLE 40 MG TABLET PO SCH (08:50)
[2020-01-19] MEDS: chlordiazePOXIDE 25 MG CAPSULE PO SCH ×3 (08:50→20:36)
[2020-01-19] MEDS: LACTULOSE 20 GM/30 ML UDCUP PO SCH ×2 (08:51→20:36)
[2020-01-19] MEDS: FOLIC ACID 1 MG TABLET PO SCH (08:51)
[2020-01-19] MEDS: POTASSIUM CHLORIDE 20 MEQ TABLET PO SCH ×3 (08:51→16:04)
[2020-01-19] MEDS: NICOTINE 21 MG/24 HR PATCH TRANSDERM SCH (08:52)
[2020-01-19] MEDS: PROPRANOLOL 10 MG TABLET PO SCH ×3 (08:52→20:36)
[2020-01-19] MEDS: MULTIVITAMIN (CENTRUM) TABLET PO SCH (08:57)
[2020-01-19] MEDS: THIAMINE 200 MG/2 ML VIAL IV SCH (09:57)
[2020-01-19] MEDS ORDERED: TUBERCULIN SKIN TEST 0.1 ML SYRINGE INTRADERM ONE (14:40)
[2020-01-19] MEDS: LORazepam 2 MG/1 ML VIAL IV PRN (20:37)
[2020-01-20 05:18] LABS: Albumin 2.9 G/DL (3.4-5.0); Bilirubin,Total 1.8 MG/DL (0.2-1.0); Calcium 8.9 MG/DL (8.5-10.1); Osmolality,Calculated 268.8 MOS/KG (273-304); Total Protein 6.8 G/DL (6.4-8.3)
[2020-01-20] MEDS: LORazepam 2 MG/1 ML VIAL IV PRN ×2 (08:05→21:07)
[2020-01-20] MEDS: PROPRANOLOL 10 MG TABLET PO SCH ×3 (09:17→22:36)
[2020-01-20] MEDS: LACTULOSE 20 GM/30 ML UDCUP PO SCH ×2 (09:34→21:07)
[2020-01-20] MEDS: NICOTINE 21 MG/24 HR PATCH TRANSDERM SCH (09:37)
[2020-01-20] MEDS: MULTIVITAMIN (CENTRUM) TABLET PO SCH (09:38)
[2020-01-20] MEDS: FOLIC ACID 1 MG TABLET PO SCH (09:38)
[2020-01-20] MEDS: THIAMINE 100 MG TABLET PO SCH (09:38)
[2020-01-20] MEDS: chlordiazePOXIDE 25 MG CAPSULE PO SCH ×3 (09:38→21:04)
[2020-01-20] MEDS: PANTOPRAZOLE 40 MG TABLET PO SCH (09:38)
[2020-01-21] MEDS: LORazepam 2 MG/1 ML VIAL IV PRN ×4 (02:03→23:11)
[2020-01-21 05:22] LABS: Basophils % 0.9 % (0.0-0.8); Hemoglobin 9.5 GM/DL (14.0-18.0); Immature Granulocytes % 0.2 %; Immature Granulocytes Absolute 0.01 #; Lymphocytes # 1.3 10*3/uL (1.4-4.0); Lymphocytes % 31.8 % (21.2-54.2); Mean Corpuscular HGB Conc 29.7 GM/DL (32-36); Monocytes % 15.2 % (1.7-12.7); Neutrophils % 51.9 % (38.7-73.9); Platelet Count 69 T/CUMM (130-400); Red Blood Count 3.68 MC/CUMM (3.8-5.5); Red Cell Distribution Width 24.6 % (9.3-17.3); White Blood Count 4.2 T/CUMM (4-12)
[2020-01-21 05:52] LABS: Anisocytosis 1+; Hypochromasia 1+; Lymphocytes 19 % (20-55); Microcytosis 1+; Platelet Estimate Decreased; Segmented Neutrophils 67 % (50-85); Total Cells Counted 100
[2020-01-21 05:53] LABS: Ovalocytes Slight; Polychromasia Few; Target Cells Few
[2020-01-21 06:08] LABS: Albumin 2.8 G/DL (3.4-5.0); Bilirubin,Total 2.3 MG/DL (0.2-1.0); Calcium 8.3 MG/DL (8.5-10.1); Osmolality,Calculated 274.5 MOS/KG (273-304); Total Protein 6.7 G/DL (6.4-8.3)
[2020-01-21] MEDS: LACTULOSE 20 GM/30 ML UDCUP PO SCH ×2 (08:30→20:41)
[2020-01-21] MEDS: PROPRANOLOL 10 MG TABLET PO SCH ×3 (08:31→23:24)
[2020-01-21] MEDS: NICOTINE 21 MG/24 HR PATCH TRANSDERM SCH (08:31)
[2020-01-21] MEDS: PANTOPRAZOLE 40 MG TABLET PO SCH (08:31)
[2020-01-21] MEDS: MULTIVITAMIN (CENTRUM) TABLET PO SCH (08:31)
[2020-01-21] MEDS: FOLIC ACID 1 MG TABLET PO SCH (08:31)
[2020-01-21] MEDS: THIAMINE 100 MG TABLET PO SCH (08:31)
[2020-01-21] MEDS: chlordiazePOXIDE 25 MG CAPSULE PO SCH ×4 (08:34→20:42)
[2020-01-22 05:37] LABS: Basophils % 0.8 % (0.0-0.8); Hematocrit 31.4 VOL% (42.0-52.0); Hemoglobin 9.8 GM/DL (14.0-18.0); Immature Granulocytes % 0.2 %; Immature Granulocytes Absolute 0.01 #; Lymphocytes # 1.5 10*3/uL (1.4-4.0); Lymphocytes % 31.7 % (21.2-54.2); Mean Corpuscular HGB Conc 31.2 GM/DL (32-36); Mean Corpuscular Volume 84.9 FL (87-102); Monocytes % 14.8 % (1.7-12.7); Neutrophils % 52.5 % (38.7-73.9); White Blood Count 4.8 T/CUMM (4-12)
[2020-01-22 05:39] LABS: Platelet Count 79 T/CUMM (130-400)
[2020-01-22 05:49] LABS: Calcium 8.2 MG/DL (8.5-10.1); Osmolality,Calculated 275.4 MOS/KG (273-304)
[2020-01-22] MEDS ORDERED: MAGNESIUM SULF RIDER 2 GM in PREMIX 1 EACH IV PRN (08:12)
[2020-01-22] MEDS ORDERED: MAGNESIUM SULF RIDER 4 GM in PREMIX 1 EACH IV PRN (08:12)
[2020-01-22] MEDS: chlordiazePOXIDE 25 MG CAPSULE PO SCH ×3 (08:53→20:21)
[2020-01-22] MEDS: POTASSIUM CHLORIDE 20 MEQ TABLET PO PRN ×3 (08:53→15:31)
[2020-01-22] MEDS: PROPRANOLOL 10 MG TABLET PO SCH ×3 (08:54→20:21)
[2020-01-22] MEDS: FOLIC ACID 1 MG TABLET PO SCH (08:54)
[2020-01-22] MEDS: NICOTINE 21 MG/24 HR PATCH TRANSDERM SCH (08:54)
[2020-01-22] MEDS: THIAMINE 100 MG TABLET PO SCH (08:54)
[2020-01-22] MEDS: MULTIVITAMIN (CENTRUM) TABLET PO SCH (08:54)
[2020-01-22] MEDS: PANTOPRAZOLE 40 MG TABLET PO SCH (08:54)
[2020-01-22] MEDS: LACTULOSE 20 GM/30 ML UDCUP PO SCH ×2 (08:54→20:20)
[2020-01-23 05:06] LABS: Basophils # 0.1 10*3/uL (0.0-0.2); Basophils % 0.9 % (0.0-0.8); Hematocrit 31.6 VOL% (42.0-52.0); Hemoglobin 9.7 GM/DL (14.0-18.0); Immature Granulocytes % 0.2 %; Immature Granulocytes Absolute 0.01 #; Lymphocytes # 1.5 10*3/uL (1.4-4.0); Lymphocytes % 28.2 % (21.2-54.2); Mean Corpuscular HGB Conc 30.7 GM/DL (32-36); Mean Corpuscular Volume 84.9 FL (87-102); Monocytes % 12.8 % (1.7-12.7); Neutrophils % 57.9 % (38.7-73.9); Red Blood Count 3.72 MC/CUMM (3.8-5.5); Red Cell Distribution Width 24.1 % (9.3-17.3); White Blood Count 5.3 T/CUMM (4-12)
[2020-01-23 05:40] LABS: Platelet Count 103 T/CUMM (130-400)
[2020-01-23 05:47] LABS: Hypochromasia 1+
[2020-01-23 05:48] LABS: Microcytosis 2+; Ovalocytes Slight; Spherocytes Slight
[2020-01-23 05:49] LABS: Platelet Estimate Decreased
[2020-01-23 05:51] LABS: Calcium 8.5 MG/DL (8.5-10.1); Osmolality,Calculated 275.4 MOS/KG (273-304)
[2020-01-23] MEDS: NICOTINE 21 MG/24 HR PATCH TRANSDERM SCH (08:57)
[2020-01-23] MEDS: THIAMINE 100 MG TABLET PO SCH (08:58)
[2020-01-23] MEDS: chlordiazePOXIDE 25 MG CAPSULE PO SCH ×3 (08:58→22:39)
[2020-01-23] MEDS: LACTULOSE 20 GM/30 ML UDCUP PO SCH ×2 (08:58→21:12)
[2020-01-23] MEDS: PROPRANOLOL 10 MG TABLET PO SCH ×3 (08:58→21:17)
[2020-01-23] MEDS: FOLIC ACID 1 MG TABLET PO SCH (08:58)
[2020-01-23] MEDS: MULTIVITAMIN (CENTRUM) TABLET PO SCH (08:59)
[2020-01-23] MEDS: PANTOPRAZOLE 40 MG TABLET PO SCH (08:59)
[2020-01-23] MEDS: LORazepam 2 MG/1 ML VIAL IV PRN ×2 (11:53→21:08)
[2020-01-23] MEDS: MAGNESIUM OXIDE 400 MG TABLET PO SCH (21:12)
[2020-01-24] MEDS: LORazepam 2 MG/1 ML VIAL IV PRN ×2 (01:29→20:11)
[2020-01-24 05:55] LABS: Basophils # 0.1 10*3/uL (0.0-0.2); Hematocrit 32.8 VOL% (42.0-52.0); Hemoglobin 9.7 GM/DL (14.0-18.0); Immature Granulocytes % 0.2 %; Immature Granulocytes Absolute 0.01 #; Lymphocytes # 1.4 10*3/uL (1.4-4.0); Lymphocytes % 23.3 % (21.2-54.2); Mean Corpuscular HGB Conc 29.6 GM/DL (32-36); Mean Corpuscular Volume 86.5 FL (87-102); Monocytes % 14.2 % (1.7-12.7); Neutrophils % 61.3 % (38.7-73.9); Platelet Count 119 T/CUMM (130-400); Red Blood Count 3.79 MC/CUMM (3.8-5.5); Red Cell Distribution Width 23.7 % (9.3-17.3)
[2020-01-24 06:00] LABS: Calcium 8.7 MG/DL (8.5-10.1)
[2020-01-24] MEDS: PROPRANOLOL 10 MG TABLET PO SCH ×3 (08:34→20:12)
[2020-01-24] MEDS: PANTOPRAZOLE 40 MG TABLET PO SCH (08:41)
[2020-01-24] MEDS: MAGNESIUM OXIDE 400 MG TABLET PO SCH ×2 (08:41→20:11)
[2020-01-24] MEDS: chlordiazePOXIDE 25 MG CAPSULE PO SCH ×3 (08:41→20:11)
[2020-01-24] MEDS: NICOTINE 21 MG/24 HR PATCH TRANSDERM SCH (08:42)
[2020-01-24] MEDS: LACTULOSE 20 GM/30 ML UDCUP PO SCH ×2 (08:42→20:11)
[2020-01-24] MEDS: FOLIC ACID 1 MG TABLET PO SCH (08:42)
[2020-01-24] MEDS: MULTIVITAMIN (CENTRUM) TABLET PO SCH (08:42)
[2020-01-24] MEDS: THIAMINE 100 MG TABLET PO SCH (08:42)
[2020-01-25] MEDS: LORazepam 2 MG/1 ML VIAL IV PRN (00:56)
[2020-01-25] MEDS: MULTIVITAMIN (CENTRUM) TABLET PO SCH (08:39)
[2020-01-25] MEDS: MAGNESIUM OXIDE 400 MG TABLET PO SCH (08:39)
[2020-01-25] MEDS: LACTULOSE 20 GM/30 ML UDCUP PO SCH (08:39)
[2020-01-25] MEDS: THIAMINE 100 MG TABLET PO SCH (08:39)
[2020-01-25] MEDS: PROPRANOLOL 10 MG TABLET PO SCH ×2 (08:39→15:13)
[2020-01-25] MEDS: chlordiazePOXIDE 25 MG CAPSULE PO SCH ×2 (08:39→15:13)
[2020-01-25] MEDS: FOLIC ACID 1 MG TABLET PO SCH (08:39)
[2020-01-25] MEDS: PANTOPRAZOLE 40 MG TABLET PO SCH (08:39)
[2020-01-25] MEDS: NICOTINE 21 MG/24 HR PATCH TRANSDERM SCH (08:40)
[2020-01-25 12:32] VITALS: BP 101/56
== END 2020-01-25 16:05 | DRG 378 ==
LOC: SUATTDRO 01-14 01:08 → N.ICU 01-14 01:08 → N.5E 01-19 10:36
PROVIDERS: ADMIT Internal Medicine; ATTEND Internal Medicine

== ENCOUNTER 2021-07-04 15:10 | Inpatient (IN) ==
[2021-07-04] MEDS ORDERED: PHENYLEPHRINE DRIP 40 MG/250 ML PREMIX IV PRN (16:53)
[2021-07-04] MEDS ORDERED: PROMETHAZINE 25 MG/1 ML VIAL IM PRN (16:53)
[2021-07-04] MEDS ORDERED: ALBUTEROL 2.5 MG/3 ML NEB RESP TX PRN (16:53)
[2021-07-04] MEDS ORDERED: ONDANSETRON 4 MG/2 ML VIAL IV PRN (16:53)
[2021-07-04] MEDS: PANTOPRAZOLE 40 MG VIAL IV SCH (18:35)
[2021-07-04] MEDS: LACTATED RINGERS 1,000 ML IV SCH (18:40)
[2021-07-04] MEDS: OCTREOTIDE 500 MCG in SODIUM CHLORIDE 0.9% 100 ML IV SCH (18:40)
[2021-07-04 18:55] LABS: Basophils % 0.3 % (0.0-0.8); Hematocrit 25.1 VOL% (42.0-52.0); Hemoglobin 7.9 GM/DL (14.0-18.0); Immature Granulocytes % 1.6 %; Immature Granulocytes Absolute 0.12 #; Lymphocytes # 0.6 10*3/uL (1.4-4.0); Mean Corpuscular HGB Conc 31.5 GM/DL (32-36); Mean Corpuscular Volume 97.7 FL (87-102); Mean Platelet Volume 10.9 FL (9.6-12.0); Monocytes % 12.8 % (1.7-12.7); NRBC # 0.05 10*3/uL; Neutrophils % 77.3 % (38.7-73.9); Red Blood Count 2.57 MC/CUMM (3.8-5.5); Red Cell Distribution Width 22.9 % (9.3-17.3); White Blood Count 7.5 T/CUMM (4-12)
[2021-07-04 18:58] LABS: Platelet Count 34 T/CUMM (130-400)
[2021-07-04 20:19] LABS: Atypical Lymphocytes Few; Lymphocytes 13 % (20-55); Metamyelocytes 1 %; Polychromasia 1+; Segmented Neutrophils 80 % (50-85); Total Cells Counted 100; Toxic Granulation 2+
[2021-07-04 20:20] LABS: Platelet Estimate Decreased; Poikilocytosis 1+
[2021-07-04 20:21] LABS: Anisocytosis 2+
[2021-07-04 23:06] LABS: Hematocrit 25.3 VOL% (42.0-52.0)
[2021-07-05 00:28] LABS: Bacteria,Urine Occasional /HPF (Few); Blood, Urine Negative (Negative); Glucose,Urine (UA) Negative (Negative); Hyaline Casts,Urine 16 /LPF (0-3); Ketones,Urine Negative (Negative); Mucus,Urine Few /LPF (Occasional); Nitrite,Urine Negative (Negative); Protein,Urine Negative; RBC,Urine <1 /HPF (0-4); Urine Appearance CLEAR (Clear); Urine Color Amber (Yellow); Urine Specific Gravity 1.014 (1.001-1.035)
[2021-07-05 00:31] LABS: Bilirubin,Urine Moderate mg/dL (Negative)
[2021-07-05] MEDS: LACTATED RINGERS 1,000 ML IV SCH ×2 (03:26→13:57)
[2021-07-05] MEDS: OCTREOTIDE 500 MCG in SODIUM CHLORIDE 0.9% 100 ML IV SCH (03:27)
[2021-07-05] MEDS: PANTOPRAZOLE 40 MG VIAL IV SCH ×2 (04:30→16:59)
[2021-07-05 04:46] LABS: Hematocrit 23.4 VOL% (42.0-52.0); Hemoglobin 7.5 GM/DL (14.0-18.0)
[2021-07-05 04:54] LABS: INR 2.7
[2021-07-05 04:58] LABS: Calcium 7.6 MG/DL (8.5-10.1); Osmolality,Calculated 279.3 MOS/KG (273-304); PT Patient Result 28.4 SECS (10.5-12.0); Potassium 3.8 MMOL/L (3.5-5.1)
[2021-07-05] MEDS ORDERED: DIAZEPAM 10 MG/2 ML SYRINGE IM PRN (08:05)
[2021-07-05] MEDS ORDERED: LACTULOSE 320 GM/480 ML BOTTLE PO PRN (08:09)
[2021-07-05] MEDS ORDERED: traZODone 50 MG TABLET PO PRN (08:09)
[2021-07-05] MEDS ORDERED: MAGNESIUM SULF RIDER 2 GM/50 ML PREMIX IV ONE ×2 (08:37→10:13)
[2021-07-05] MEDS: PHYTONADIONE 10 MG/1 ML AMP SUBCUT SCH (08:48)
[2021-07-05] MEDS ORDERED: MAGNESIUM SULF RIDER 4 GM/100 ML PREMIX IV ONE (09:00)
[2021-07-05] MEDS: LACTULOSE 20 GM/30 ML UDCUP PO PRN (10:18)
[2021-07-05] MEDS: DIAZEPAM 5 MG TABLET PO PRN (10:18)
[2021-07-05 10:50] LABS: Albumin 1.3 G/DL (3.4-5.0); Calcium 7.4 MG/DL (8.5-10.1); Osmolality,Calculated 280.3 MOS/KG (273-304); Total Protein 5.3 G/DL (6.4-8.2)
[2021-07-05 10:53] LABS: Bilirubin,Total 17.5 MG/DL (0.20-1.00)
[2021-07-05] MEDS: cefTRIAXone 1,000 MG in SODIUM CHLORIDE 0.9% 100 ML IV SCH (11:58)
[2021-07-06] MEDS: LACTATED RINGERS 1,000 ML IV SCH ×3 (00:22→20:30)
[2021-07-06 04:44] LABS: Basophils % 0.2 % (0.0-0.8); Hematocrit 24.6 VOL% (42.0-52.0); Hemoglobin 7.8 GM/DL (14.0-18.0); Immature Granulocytes % 1.1 %; Immature Granulocytes Absolute 0.17 #; Lymphocytes # 0.7 10*3/uL (1.4-4.0); Lymphocytes % 4.5 % (21.2-54.2); Mean Corpuscular HGB Conc 31.7 GM/DL (32-36); Mean Corpuscular Volume 99.6 FL (87-102); Mean Platelet Volume 11.4 FL (9.6-12.0); Monocytes % 6.7 % (1.7-12.7); NRBC # 0.02 10*3/uL; Neutrophils % 87.5 % (38.7-73.9); Red Blood Count 2.47 MC/CUMM (3.8-5.5); Red Cell Distribution Width 24.2 % (9.3-17.3); White Blood Count 16.1 T/CUMM (4-12)
[2021-07-06 04:48] LABS: Platelet Count 39 T/CUMM (130-400)
[2021-07-06 05:06] LABS: Band Neutrophils 1 % (0-10); Hypochromasia 1+; Lymphocytes 2 % (20-55); Microcytosis 1+; Platelet Estimate Decreased; Segmented Neutrophils 95 % (50-85); Total Cells Counted 100
[2021-07-06 05:18] LABS: Albumin 1.2 G/DL (3.4-5.0); Calcium 7.3 MG/DL (8.5-10.1); Osmolality,Calculated 285.3 MOS/KG (273-304); Potassium 3.9 MMOL/L (3.5-5.1); Total Protein 4.9 G/DL (6.4-8.2)
[2021-07-06] MEDS: PANTOPRAZOLE 40 MG VIAL IV SCH ×2 (05:49→17:13)
[2021-07-06 05:58] LABS: Bilirubin,Total 17.7 MG/DL (0.20-1.00)
[2021-07-06] MEDS: LACTULOSE 20 GM/30 ML UDCUP PO PRN (06:16)
[2021-07-06] MEDS: PHYTONADIONE 10 MG/1 ML AMP SUBCUT SCH (08:48)
[2021-07-06] MEDS ORDERED: LIDOCAINE 2% 5 ML VIAL ONE (11:45)
[2021-07-06] MEDS ORDERED: ETOMIDATE 20 MG/10 ML VIAL IV ONE (11:45)
[2021-07-06] MEDS ORDERED: propofoL 200 MG/20 ML VIAL IV ONE (12:03)
[2021-07-06] MEDS: cefTRIAXone 1,000 MG in SODIUM CHLORIDE 0.9% 100 ML IV SCH (13:07)
[2021-07-06] MEDS: DIAZEPAM 5 MG TABLET PO PRN (17:30)
[2021-07-07] MEDS: DIAZEPAM 5 MG TABLET PO PRN ×3 (01:18→14:55)
[2021-07-07 03:34] LABS: Basophils % 0.2 % (0.0-0.8); Hemoglobin 7.7 GM/DL (14.0-18.0); Immature Granulocytes % 1.5 %; Immature Granulocytes Absolute 0.17 #; Lymphocytes # 0.8 10*3/uL (1.4-4.0); Lymphocytes % 7.3 % (21.2-54.2); Mean Corpuscular HGB Conc 30.8 GM/DL (32-36); Mean Corpuscular Volume 100.8 FL (87-102); Mean Platelet Volume 12.4 FL (9.6-12.0); Monocytes % 5.8 % (1.7-12.7); NRBC # 0.03 10*3/uL; Neutrophils % 85.2 % (38.7-73.9); Red Blood Count 2.48 MC/CUMM (3.8-5.5); Red Cell Distribution Width 24.5 % (9.3-17.3); White Blood Count 11.4 T/CUMM (4-12)
[2021-07-07 03:36] LABS: Platelet Count 36 T/CUMM (130-400)
[2021-07-07 03:51] LABS: Albumin 1.1 G/DL (3.4-5.0); Calcium 7.7 MG/DL (8.5-10.1); Osmolality,Calculated 282.4 MOS/KG (273-304); Potassium 3.7 MMOL/L (3.5-5.1); Total Protein 4.8 G/DL (6.4-8.2)
[2021-07-07 03:53] LABS: Lymphocytes 3 % (20-55); Nucleated Red Blood Cells 1 (0-5); Segmented Neutrophils 92 % (50-85); Total Cells Counted 100
[2021-07-07 03:54] LABS: Bilirubin,Total 18.1 MG/DL (0.20-1.00)
[2021-07-07 03:55] LABS: Hypochromasia 1+; Platelet Estimate Decreased
[2021-07-07 03:56] LABS: Microcytosis Slight
[2021-07-07] MEDS: PANTOPRAZOLE 40 MG VIAL IV SCH ×2 (06:22→17:39)
[2021-07-07] MEDS: LACTATED RINGERS 1,000 ML IV SCH (07:55)
[2021-07-07] MEDS ORDERED: LACTATED RINGERS 1,000 ML IV SCH (08:00)
[2021-07-07] MEDS: PHYTONADIONE 10 MG/1 ML AMP SUBCUT SCH (09:34)
[2021-07-07] MEDS: cefTRIAXone 1,000 MG in SODIUM CHLORIDE 0.9% 100 ML IV SCH (12:12)
[2021-07-07] MEDS: prednisoLONE 15 MG/5 ML ORAL.SYR PO SCH (14:45)
[2021-07-08 05:24] LABS: Alanine Aminotransferase 34 U/L (16-61); Albumin 1.7 G/DL (3.4-5.0); Alkaline Phosphatase 71 U/L (45-117); Aspartate Amino Transferase 45 U/L (0-37); Bilirubin,Total < 0.39 MG/DL (0.20-1.00); Blood Urea Nitrogen 114 MG/DL (7-18); Calcium 7.5 MG/DL (8.5-10.1); Carbon Dioxide 28 MMOL/L (21-32); Estimated Glom Filtration Rate 10 ML/MIN; Glucose 91 MG/DL (74-106); Osmolality,Calculated 308.8 MOS/KG (273-304); Potassium 5.9 MMOL/L (3.5-5.1); Sodium 137 MMOL/L (136-145); Total Protein 6.1 G/DL (6.4-8.2)
[2021-07-08] MEDS: PANTOPRAZOLE 40 MG VIAL IV SCH ×2 (05:30→16:15)
[2021-07-08 06:15] LABS: Basophils % 0.2 % (0.0-0.8); Hematocrit 23.7 VOL% (42.0-52.0); Hemoglobin 7.4 GM/DL (14.0-18.0); Immature Granulocytes Absolute 0.36 #; Lymphocytes # 0.6 10*3/uL (1.4-4.0); Lymphocytes % 4.6 % (21.2-54.2); Mean Corpuscular HGB Conc 31.2 GM/DL (32-36); Mean Corpuscular Volume 100.4 FL (87-102); NRBC # 0.03 10*3/uL; Neutrophils % 85.2 % (38.7-73.9); Red Blood Count 2.36 MC/CUMM (3.8-5.5); Red Cell Distribution Width 25.2 % (9.3-17.3); White Blood Count 11.9 T/CUMM (4-12)
[2021-07-08 06:27] LABS: Platelet Count 32 T/CUMM (130-400)
[2021-07-08 06:52] LABS: Lymphocytes 2 % (20-55); Segmented Neutrophils 94 % (50-85); Total Cells Counted 100
[2021-07-08 06:53] LABS: Anisocytosis 1+; Hypochromasia 1+; Macrocytosis 1+; Target Cells Few
[2021-07-08 06:54] LABS: Platelet Estimate Decreased
[2021-07-08] MEDS: prednisoLONE 15 MG/5 ML ORAL.SYR PO SCH (08:45)
[2021-07-08] MEDS: PHYTONADIONE 10 MG/1 ML AMP SUBCUT SCH (08:45)
[2021-07-08 10:34] LABS: Albumin 1.2 G/DL (3.4-5.0); Calcium 7.4 MG/DL (8.5-10.1); Osmolality,Calculated 283.4 MOS/KG (273-304); Potassium 3.8 MMOL/L (3.5-5.1)
[2021-07-08] MEDS: cefTRIAXone 1,000 MG in SODIUM CHLORIDE 0.9% 100 ML IV SCH (10:40)
[2021-07-08 10:50] LABS: Bilirubin,Total 18.2 MG/DL (0.20-1.00)
[2021-07-08] MEDS: DIAZEPAM 5 MG TABLET PO SCH ×3 (12:30→20:58)
[2021-07-09 05:37] LABS: Basophils % 0.2 % (0.0-0.8); Hematocrit 27.2 VOL% (42.0-52.0); Hemoglobin 8.6 GM/DL (14.0-18.0); Immature Granulocytes % 4.6 %; Lymphocytes # 0.6 10*3/uL (1.4-4.0); Lymphocytes % 4.7 % (21.2-54.2); Mean Corpuscular HGB Conc 31.6 GM/DL (32-36); Mean Corpuscular Volume 101.5 FL (87-102); Mean Platelet Volume 12.5 FL (9.6-12.0); Monocytes % 7.8 % (1.7-12.7); NRBC # 0.04 10*3/uL; Neutrophils % 82.7 % (38.7-73.9); Red Blood Count 2.68 MC/CUMM (3.8-5.5); Red Cell Distribution Width 25.7 % (9.3-17.3); White Blood Count 13.1 T/CUMM (4-12)
[2021-07-09 06:05] LABS: Calcium 7.6 MG/DL (8.5-10.1); Osmolality,Calculated 291.8 MOS/KG (273-304); Potassium 4.2 MMOL/L (3.5-5.1); Total Protein 5.1 G/DL (6.4-8.2)
[2021-07-09] MEDS: PANTOPRAZOLE 40 MG VIAL IV SCH ×2 (06:12→17:24)
[2021-07-09 06:30] LABS: Platelet Count 37 T/CUMM (130-400)
[2021-07-09 06:43] LABS: Lymphocytes 6 % (20-55); Myelocytes 1 %; Platelet Estimate Decreased; Segmented Neutrophils 90 % (50-85); Total Cells Counted 100
[2021-07-09 06:46] LABS: Hypochromasia Slight
[2021-07-09 06:47] LABS: Macrocytosis Slight
[2021-07-09 06:55] LABS: Bilirubin,Total 18.4 MG/DL (0.20-1.00)
[2021-07-09] MEDS: cefTRIAXone 1,000 MG in SODIUM CHLORIDE 0.9% 100 ML IV SCH (11:58)
[2021-07-09] MEDS: prednisoLONE 15 MG/5 ML ORAL.SYR PO SCH (12:19)
[2021-07-09] MEDS: DIAZEPAM 5 MG TABLET PO SCH ×4 (12:19→22:49)
[2021-07-10 06:25] LABS: Basophils % 0.2 % (0.0-0.8); Hematocrit 31.1 VOL% (42.0-52.0); Hemoglobin 9.7 GM/DL (14.0-18.0); Immature Granulocytes % 6.2 %; Immature Granulocytes Absolute 0.77 #; Lymphocytes # 0.5 10*3/uL (1.4-4.0); Lymphocytes % 4.3 % (21.2-54.2); Mean Corpuscular HGB Conc 31.2 GM/DL (32-36); Monocytes % 7.2 % (1.7-12.7); NRBC # 0.05 10*3/uL; Neutrophils % 82.1 % (38.7-73.9); Red Blood Count 3.02 MC/CUMM (3.8-5.5); Red Cell Distribution Width 26.8 % (9.3-17.3); White Blood Count 12.5 T/CUMM (4-12)
[2021-07-10 06:31] LABS: Platelet Count 34 T/CUMM (130-400)
[2021-07-10 06:49] LABS: Anisocytosis 1+; Band Neutrophils 2 % (0-10); Eosinophils 1 % (0-10); Hypochromasia 1+; Lymphocytes 1 % (20-55); Macrocytosis 1+; Polychromasia Slight; Segmented Neutrophils 88 % (50-85); Total Cells Counted 100
[2021-07-10 06:50] LABS: Acanthocytes Few; Burr Cells Few; Platelet Estimate Decreased
[2021-07-10 07:01] LABS: Albumin 1.1 G/DL (3.4-5.0); Calcium 8.1 MG/DL (8.5-10.1); Osmolality,Calculated 292.7 MOS/KG (273-304); Potassium 4.4 MMOL/L (3.5-5.1); Total Protein 5.8 G/DL (6.4-8.2)
[2021-07-10 07:04] LABS: Bilirubin,Total 21.5 MG/DL (0.20-1.00)
[2021-07-10] MEDS: PANTOPRAZOLE 40 MG VIAL IV SCH ×2 (09:11→20:30)
[2021-07-10] MEDS: prednisoLONE 15 MG/5 ML ORAL.SYR PO SCH (09:14)
[2021-07-10] MEDS: DIAZEPAM 5 MG TABLET PO SCH ×4 (09:14→20:29)
[2021-07-10] MEDS: cefTRIAXone 1,000 MG in SODIUM CHLORIDE 0.9% 100 ML IV SCH (11:11)
[2021-07-10] MEDS ORDERED: LACTULOSE 20 GM/30 ML UDCUP PO SCH (21:00)
[2021-07-10] MEDS ORDERED: LORazepam 2 MG/1 ML VIAL IV PRN (21:13)
[2021-07-11 05:41] LABS: Basophils % 0.2 % (0.0-0.8); Hematocrit 26.1 VOL% (42.0-52.0); Hemoglobin 8.2 GM/DL (14.0-18.0); Immature Granulocytes % 4.4 %; Immature Granulocytes Absolute 0.48 #; Lymphocytes # 0.4 10*3/uL (1.4-4.0); Lymphocytes % 3.6 % (21.2-54.2); Mean Corpuscular HGB Conc 31.4 GM/DL (32-36); Mean Platelet Volume 12.5 FL (9.6-12.0); Monocytes % 5.1 % (1.7-12.7); NRBC # 0.03 10*3/uL; Neutrophils % 86.7 % (38.7-73.9); Red Blood Count 2.51 MC/CUMM (3.8-5.5); Red Cell Distribution Width 27.6 % (9.3-17.3)
[2021-07-11 05:50] LABS: INR 2.6; PT Patient Result 27.6 SECS (10.5-12.0)
[2021-07-11 05:55] LABS: Platelet Count 31 T/CUMM (130-400)
[2021-07-11 06:04] LABS: Albumin 1.2 G/DL (3.4-5.0); Calcium 8.4 MG/DL (8.5-10.1); Osmolality,Calculated 301.1 MOS/KG (273-304); Potassium 3.7 MMOL/L (3.5-5.1); Total Protein 5.4 G/DL (6.4-8.2)
[2021-07-11 06:05] LABS: Hypochromasia 1+; Lymphocytes 2 % (20-55); Macrocytosis Slight; Platelet Estimate Decreased; Segmented Neutrophils 96 % (50-85); Total Cells Counted 100
[2021-07-11 06:07] LABS: Bilirubin,Total 20.8 MG/DL (0.20-1.00)
[2021-07-11] MEDS: PANTOPRAZOLE 40 MG VIAL IV SCH ×2 (10:53→20:49)
[2021-07-11] MEDS: cefTRIAXone 1,000 MG in SODIUM CHLORIDE 0.9% 100 ML IV SCH (10:54)
[2021-07-11] MEDS: HYDROmorphone 2 MG/1 ML VIAL IV PRN (20:49)
[2021-07-12] MEDS: cefTRIAXone 1,000 MG in SODIUM CHLORIDE 0.9% 100 ML IV SCH (09:13)
[2021-07-12] MEDS: PANTOPRAZOLE 40 MG VIAL IV SCH (09:13)
[2021-07-12] MEDS: HYDROmorphone 2 MG/1 ML VIAL IV PRN ×2 (16:06→17:20)
[2021-07-12] MEDS ORDERED: LORazepam 2 MG/1 ML VIAL IV PRN (16:41)
[2021-07-12] MEDS: MORPHINE 2 MG/1 ML SYRINGE IV PRN (18:30)
[2021-07-13] MEDS: ACETAMINOPHEN 650 MG SUPP RECTAL PRN ×4 (04:39→17:11)
[2021-07-13] MEDS: MORPHINE 2 MG/1 ML SYRINGE IV PRN (23:17)
[2021-07-14 05:36] VITALS: BP 67/25
== END 2021-07-14 03:45 | disposition expired | DRG 442 ==
LOC: N.ED 15:10 → N.ICU 16:45 → SUATTDRO 16:45 → N.ICU 19:48 → N.5E 07-08 13:17
PROVIDERS: ADMIT Internal Medicine; ATTEND Hospitalist